=== PATIENT | female | born 1945 | race Caucasian/White ===

== ENCOUNTER 2018-12-26 08:50 | Inpatient (IN) ==
[2018-12-26] MEDS ORDERED: ADENOSINE IV SOLN 3 MG/ML 2 ML VIAL IV ONE (09:00)
[2018-12-26] MEDS ORDERED: SODIUM CHLORIDE 0.9% 1000ML 1,000 ML IV STA (09:08)
[2018-12-26] MEDS ORDERED: dilTIAZem HCl 125 MG in DEXTROSE 5% 100 ML IV STA (09:08)
[2018-12-26] MEDS ORDERED: dilTIAZem HCl 5 MG/ML 5 ML VIAL IV STA (09:08)
[2018-12-26 09:18] LABS: Basophils # (auto) 0.03 K/uL (0-0.2); Basophils % (auto) 0.3 %; Eosinophils # (auto) 0.16 K/uL (0-0.5); Eosinophils % (auto) 1.7 %; Hemoglobin 16.5 g/dL (12.0-16.0); Immature Granulocytes # (auto) 0.02 K/uL (0.00-0.02); Immature Granulocytes % (auto) 0.2 %; Lymphocytes # (auto) 3.36 K/uL (1.2-3.4); Lymphocytes % (auto) 34.8 %; Mean Corpuscular Hgb Conc 33.7 g/dL (32-36); Mean Corpuscular Volume 88.8 fL (80-100); Mean Platelet Volume 9.3 fL (7.4-10.4); Monocytes # (auto) 0.75 K/uL (0.11-0.59); Monocytes % (auto) 7.8 %; Neutrophils # (auto) 5.34 K/uL (1.4-6.5); Neutrophils % (auto) 55.2 %; Platelet Count 282 K/uL (130-400); RDW Coefficient of Variation 14.5 % (11.5-14.5); RDW Standard Deviation 47.3 fL (36.4-46.3); Red Blood Count 5.52 M/uL (4.2-5.4); White Blood Count 9.66 K/uL (4.8-10.8)
--- NOTE | 2018-12-26 09:27 | XRay Report ---
XR chest 1V portable CLINICAL HISTORY: SOB, tachycardia COMPARISON STUDY: No previous studies for comparison. FINDINGS: Lung volumes are mildly diminished. There is no pneumothorax or pleural effusion. There is no consolidation to suggest pneumonia. Mild cardiomegaly is noted. There is pulmonary vascular conges tion without overt pulmonary edema. IMPRESSION: Mild cardiomegaly with pulmonary vascular congestion. No overt pulmonary edema. Electronically signed by: Az Balletseros M.D. 12/26/2018 9:26 AM
[2018-12-26 09:38] LABS: Alanine Aminotransferase 27 U/L (12-78); Albumin Level 3.6 gm/dl (3.4-5.0); Aspartate Aminotransferase 20 U/L (15-37); BUN Creatinine Ratio 18.6 (10-20); Blood Urea Nitrogen 19 mg/dl (7-18); Calcium 8.7 mg/dl (8.5-10.1); Carbon Dioxide 27 mmol/L (21-32); Chloride 105 mmol/L (98-107); Creatinine Clr Calc Pharmacy 54.7 ml/min; Est GFR (African American) 63.6; Est GFR (Non-African American) 54.9; Glucose 143 mg/dl (70-99); Magnesium 2.4 mg/dl (1.8-2.4); Potassium 3.1 mmol/L (3.5-5.1); Sodium 143 mmol/L (136-145)
[2018-12-26 09:49] LABS: Albumin Globulin Ratio 0.9 (0.9-2); Alkaline Phosphatase 118 U/L (45-117); Bilirubin,Total 0.4 mg/dl (0.2-1); Total Protein 7.6 gm/dl (6.4-8.2); Troponin I < 0.015 ng/ml (0-0.045)
[2018-12-26] MEDS ORDERED: POTASSIUM CHLORIDE / WTR 10 MEQ/100 ML PLCT IV ONE (10:58)
[2018-12-26] MEDS ORDERED: POTASSIUM CHLORIDE 20 MEQ TABCR PO STA (10:58)
[2018-12-26] MEDS ORDERED: Heparin BOLUS **ED Use Only IV STA (11:23)
[2018-12-26 11:56] LABS: Partial Thromboplastin Ratio 0.9; Partial Thromboplastin Time 24.8 Seconds (21.0-31.0); Prothrombin Time 10.2 Seconds (9.0-12.0)
[2018-12-26] MEDS: HEPARIN SODIUM/DEXTROSE 25,000 UNITS/500 ML BAG IV SCH ×2 (12:03→14:53)
--- NOTE | 2018-12-26 12:11 | History & Physical Report ---
Date of Service December 26, 2018 Assessment & Plan (1) Atrial fibrillation with RVR: Patient with remote history of arrhythmia s/p ablation, uncertain if it was atrial fibrillation. Presently on Diltiazem 120mg po qHS. Presenting in AF with RVR, palpitations intermittently over the last few months. -Admit to PCU -Check 2D echocardiogram -Repeat troponin at 17:00 -Diltiazem gtt -Continue PO Diltiazem - increase to 240mg -Heparin gtt -Cardiology consultation to establish care -Patient may need a stress test in the future as she reports occasional exertional SOB and chest heaviness Present on Admission?: Yes (2) Hypokalemia: K=3.1 -Kdur 40meq PO -Repeat labs in AM Present on Admission?: Yes (3) Hypertension: Blood pressure well controlled at present -Diltiazem as above -HCTZ -Continue to monitor Present on Admission?: Yes (4) Hyperlipidemia: Diet controlled -Continue to monitor Present on Admission?: Yes (5) GERD (gastroesophageal reflux disease): Chronic. Well controlled -Continue Omeprazole F/E/N - Heplock. K repletion as above. Check Mg and PO4, Heart healthy diet as tolerated Ppx - Heparin gtt Code - Full Disposition - Admit to PCU Present on Admission?: Yes History of Present Illness Chief Complaint: AF with RVR Primary Care Provider: Chanel Bruce Nisa Perez is a 73yo C female with history of epidermolysis bullosa, HTN, HLP, Anxiety, GERD presenting with AF with RVR. Patient reports having an arrhythmia approximately 5 years ago. She is unsure if it was Atrial Fibrillation. She was started on a medication which made her ill then she had an ablation performed at [facility] in [place] ([facility] in [place], [place] Dr. Barton). She was started on Diltiazem and was briefly on a blood thinner. She moved to the area in March, reports having intermittent palpitations since then. Palpitations occur mostly at night. Relieved with deep breathing and bearing down. Palpitations have become more frequent and longer lasting over the last two weeks. Last night they were persistent. When she woke this AM at 08:00 her heart rate was 137 then 157 bpm. She then came to the ER. She denies chest pain but states that her chest feels sore. Denies SOB, dizziness, presyncope, numbness, weakness. She drinks 1-2 caffeinated beverages per day, minimal EtOH intake. She has a dull frontal headache now, otherwise no complaints. ER Course: Adenosine 18mg, Diltiazem 10mg bolus then gtt, Heparin gtt, KCL Allergies Allergy/AdvReac Type Severity Reaction Status Date / Time aspirin AdvReac Mild upset Verified 12/26/18 09:30 stomach Home Medications Home Medications Medication Instructions Recorded Confirmed Type Ansvcxhteco-Ikvdfq-O2 (C-leticia) 1 cap PO QAM 06/08/18 12/26/18 History Probiotic 1 cap PO QAM 06/08/18 12/26/18 History Triple Magnesium Complex 1 cap PO QAM 06/08/18 12/26/18 History ascorbic acid (vitamin C) [Vitamin 1 g PO QAM 06/08/18 12/26/18 History C] biotin 1 mg PO QAM 06/08/18 12/26/18 History cyanocobalamin (vitamin B-12) 5,000 mcg SUBLINGUAL QAM 06/08/18 12/26/18 History [Vitamin B-12] diltiazem HCl 120 mg PO HS 06/08/18 12/26/18 History hydrochlorothiazide 25 mg PO QAM 06/08/18 12/26/18 History omeprazole 40 mg PO QAM 06/08/18 12/26/18 History ibuprofen [Motrin IB] 200 mg PO Q6H PRN 12/26/18 12/26/18 History Past Med/Surg History Medical History Anxiety no meds Epidermolysis bullosa acquisita GERD (gastroesophageal reflux disease) Hyperlipidemia no meds, diet controlled Hypertension IBS (irritable bowel syndrome) Liver cyst just monitoring Osteoarthritis PVC's (premature ventricular contractions) hx of, reason for ablation Rheumatoid arthritis no meds Squamous cell carcinoma knee, chest, both arms--removed in office bilt hands--sx Thyroid nodule Surgical History History of biopsy of bladder benign History of bowel resection benign tumor, 3 ft removed History of cardiac radiofrequency ablation History of cataract surgery RIGHT CATARACT 06/22/18: 4mg of versed given History of colonoscopy History of dilatation and curettage History of esophagogastroduodenoscopy (EGD) History of gynecologic surgery vaginal cyst removal History of surgery skin cancer removed off both hands S/P thyroid biopsy nodules on thyroid, benign Status post medial meniscus repair left knee Family History Other No family history of adverse response to anesthesia Social History Preferred Language: Colombian Communication Ability: Effective Administrative Hearing Officer Required: No Beliefs That Will Affect Care: None Current Living Situation: Spouse Feels Safe at Home: Yes Smoking Status: Never smoker Second Hand Exposure: No ; Hx Alcohol Use: Yes Alcohol type: wine Hx Substance Use: No Review of Systems Review of Systems: All systems reviewed & are unremarkable except as noted in HPI & below Physical Exam Physical Exam: General: patient resting comfortably, NAD, non-toxic in appearance, AA&O x 4 Skin: warm, dry, intact, no rashes or lesions HEENT: NC/AT, PERRL, EOMI, anicteric sclera, conjunctiva without injection, external ear normal to inspection and nontender, nares patent, moist mucus membranes, dentition intact, no oropharyngeal lesions, neck supple, trachea midline, no LAD, no thyromegaly, no JVD Heart: +S1/S2, irregularly irregular, tachycardic, no m/r/g Lungs: equal air entry bilaterally, no rales/rhonchi/wheezes Abd: +BS, soft, NT/ND, no masses/organomegaly/ascites Ext: warm, 2+ pulses in UE/LE bilaterally, no clubbing/cyanosis or edema Neuro: nonfocal, patient AA&O x 4, speech intact, no facial droop, moving all extremities on command with equal strength 5/5 Results & Data Vital Signs (Past 12 Hours) Vital Signs Temp Pulse Pulse Resp BP BP Pulse Ox 12/26/18 10:12 80 16 119/71 99 12/26/18 09:30 121 H 14 134/79 99 12/26/18 09:29 137 H 20 140/91 97 12/26/18 09:05 98 12/26/18 09:01 137 H 16 137/96 99 12/26/18 08:53 36.5 C 165 H 18 151/91 H 98 Laboratory Results Lab Results 12/26/18 12/26/18 12/26/18 Range/Units 09:00 09:00 11:40 WBC 9.66 (4.8-10.8) K/uL RBC 5.52 H (4.2-5.4) M/uL Hgb 16.5 H (12.0-16.0) g/dL Hct 49.0 H (37-47) % MCV 88.8 (80-100) fL MCH 29.9 (25-34) pg MCHC 33.7 (32-36) g/dL RDW Std Deviation 47.3 H (36.4-46.3) fL RDW Coeff of Trent 14.5 (11.5-14.5) % Plt Count 282 (130-400) K/uL MPV 9.3 (7.4-10.4) fL Immature Gran % (Auto) 0.2 % Neut % (Auto) 55.2 % Lymph % (Auto) 34.8 % [place] % (Auto) 7.8 % Eos % (Auto) 1.7 % Baso % (Auto) 0.3 % Immature Gran # (Auto) 0.02 (0.00-0.02) K/uL Neut # (Auto) 5.34 (1.4-6.5) K/uL Lymph # (Auto) 3.36 (1.2-3.4) K/uL [place] # (Auto) 0.75 H (0.11-0.59) K/uL Eos # (Auto) 0.16 (0-0.5) K/uL Baso # (Auto) 0.03 (0-0.2) K/uL PT 10.2 (9.0-12.0) Seconds INR 1.0 (0.9-1.1) APTT 24.8 (21.0-31.0) Seconds PTT Ratio 0.9 Sodium 143 (136-145) mmol/L Potassium 3.1 L (3.5-5.1) mmol/L Chloride 105 (98-107) mmol/L Carbon Dioxide 27 (21-32) mmol/L Anion Gap 11.0 (3-11) BUN 19 H (7-18) mg/dl Creatinine 1.02 (0.6-1.2) mg/dl Est Cr Clr Drug Dosing 54.7 ml/min Est GFR ( Amer) 63.6 Est GFR (Non-Af Amer) 54.9 BUN/Creatinine Ratio 18.6 (10-20) Glucose 143 H (70-99) mg/dl Calcium 8.7 (8.5-10.1) mg/dl Magnesium 2.4 (1.8-2.4) mg/dl Total Bilirubin 0.4 (0.2-1) mg/dl AST 20 (15-37) U/L ALT 27 (12-78) U/L Alkaline Phosphatase 118 H (45-117) U/L Troponin I < 0.015 (0-0.045) ng/ml Total Protein 7.6 (6.4-8.2) gm/dl Albumin 3.6 (3.4-5.0) gm/dl Globulin 4.0 (2.5-4.0) gm/dl Albumin/Globulin Ratio 0.9 (0.9-2) TSH 1.240 (0.300-4.500) uIu/ml Diagnostic Findings XR chest 1V portable CLINICAL HISTORY: SOB, tachycardia COMPARISON STUDY: No previous studies for comparison. FINDINGS: Lung volumes are mildly diminished. There is no pneumothorax or pleural effusion. There is no consolidation to suggest pneumonia. Mild cardiomegaly is noted. There is pulmonary vascular congestion without overt pulmonary edema. IMPRESSION: Mild cardiomegaly with pulmonary vascular congestion. No overt pulmonary edema. Electronically signed by: Az Ballesteros M.D. 12/26/2018 9:26 AM Dictated: 12/26/18923 Transcribed: 12/26/18923 Code Status & VTE Plan Code Status full VTE Prophylaxis Plan VTE Prophylaxis will be ordered: Yes PG Care Time/CCT Total # of Minutes Spent Total Time Spent with Patient: Total time spent is greater than 50% in coordination of care (as documented) at patient's floor/unit and/or counseling patient: (1) Hyperlipidemia Hyperlipidemia type: unspecified Qualified Code(s): E78.5 - Hyperlipidemia, unspecified (2) GERD (gastroesophageal reflux disease) Esophagitis presence: esophagitis presence not specified Qualified Code(s): K21.9 - Gastro-esophageal reflux disease without esophagitis (3) Hypertension Hypertension type: essential hypertension Qualified Code(s): I10 - Essential (primary) hypertension
[2018-12-26] MEDS ORDERED: ACETAMINOPHEN 325 MG TAB PO PRN (14:31)
[2018-12-26] MEDS ORDERED: ONDANSETRON INJ 2 MG/ML 2 ML VIAL IV PRN (14:31)
[2018-12-26] MEDS ORDERED: POTASSIUM CHLORIDE 10 MEQ TABCR PO STA (14:31)
[2018-12-26] MEDS ORDERED: HEPARIN SODIUM/DEXTROSE 25,000 UNITS/500 ML BAG IV SCH (14:31)
[2018-12-26] MEDS ORDERED: Heparin IV Standard *NO* Bolus IV ONE (14:31)
[2018-12-26] MEDS ORDERED: DOCUSATE SODIUM 100 MG CAP PO PRN (14:31)
[2018-12-26] MEDS: dilTIAZem HCl 125 MG in DEXTROSE 5% 100 ML IV SCH (14:52)
--- NOTE | 2018-12-26 16:39 | Emergency Department Note ---
Entered by Aaron Pace acting as a scribe for Heath Lomeli MD ED Provider Note CHIEF COMPLAINT: Tachycardia HISTORY OF PRESENT ILLNESS: The patient is a 73 year old female who presents to the Emergency Room with complaints of episodic tachycardia that she first noticed last night around, 22:00, about 11 hours ago. The patient states that when she first noticed her heart racing she was short of breath, especially when lying down, but she did not have any chest pains. Just prior to the episode that patient started to develop a headache which she thought was just a sinus headache. The patient reports that she had a cardiac ablation done 5 years ago at [facility] due to a history of SVT and was seeing a community planner in [place] for some time. The patient notes that this is the second or third episode she has had since the ablation, however in the past her symptoms have resolved by themselves after a short time. The patient states that she no longer sees cardiology because since her ablation she has never had any serious complications. The patient denies any excessive alcohol use over the past couple of days. Pt denies LOC, fevers, chills, diaphoresis, visual changes, neck pain, chest pain, nausea, vomiting, abdominal pain, back pain, melena, hematochezia, urinary symptoms, numbness, weakness, lymphadenopathy, rash, or other complaints. REVIEW OF SYSTEMS: See HPI for pertinent positives and negatives. A total of ten systems were reviewed and were otherwise negative. PMHx/PSHx: PVCs, HTN, HLD, SCC, GERD, IBS, RA, Cardiac ablation, Bowel resection, EGD, Gynecologic surgery SOCIAL HISTORY: Patient lives at home. PHYSICAL EXAM: GENERAL: Awake, alert, uncomfortable-appearing, in no distress HENT: Normocephalic, atraumatic. Oropharynx unremarkable. EYES: Normal conjunctiva. Sclera non-icteric. NECK: Inspection normal. Non-tender. Supple. No nuchal rigidity. FROM. No masses. No bruits. RESPIRATORY: Clear to auscultation. No wheezes. No rales. Normal respiratory effort. CARDIAC: Tachycardic rate. Irregular rhythm. No murmurs. No rubs. Extremities warm and well perfused. Pulses equal. No JVD. GI: Soft, non-distended. No tenderness to palpation. No rebound or guarding. No masses. RECTAL: Deferred. MUSCULOSKELETAL: Atraumatic. Chest examination reveals no tenderness. The back is symmetrical on inspection without obvious abnormality. There is no CVA tenderness to palpation. No joint edema. LOWER EXTREMITIES: Calves are equal size bilaterally and non-tender. No edema. No discoloration. NEURO: Normal sensorium. No sensory or motor deficits noted. SKIN: No rash or jaundice noted. EMERGENCY DEPARTMENT COURSE: 0900: Past medical records reviewed. The patient was evaluated in room A11B, and a complete history and physical examination were performed. 1059: I reevaluated the patient and she is feeling better. Her heart rate is now controlled. 1105: I spoke to Dr. Becerril - [facility] Hospitalist about the patient's case. She is going to accept the patient for further evaluation. MEDICAL DECISION MAKING: Triage Nursing notes reviewed and agree them. Additional history obtained from the family. The patient's history was concerning for palpitations. Differential diagnosis: Etiologies such as electrolyte abnormality, cardiac dysrhythmia, thyroid dysfunction, pulmonary embolism, infection, gastrointestinal, as well as others were entertained. Physical examination: Tachycardia noted. It was irregular. ER treatment provided: IV diltiazem bolus and drip On reassessment the patient felt better. IV heparin Diagnostic interpretation by me: The electrocardiogram was negative for ischemic change. A. fib with RVR noted. The labs revealed an unremarkable CBC and chemistry panel except for hypokalemia. Imaging studies: Chest x-ray as above. Consultation: A consultation was placed with the hospitalist. The case was discussed and diagnostics were reviewed. The patient was evaluated in the ER for further treatment. CONTINUOUS CARDIAC MONITORING: Indication: New onset atrial fibrillation Rhythm: Atrial fibrillation with borderline rapid ventricular response after treatment Rate: 98 Other: No ectopy noted CRITICAL CARE: I have personally spent greater than 35 minutes of critical care time in the direct management of this patient. This includes bedside care, interpretation of diagnostic studies, and testing, discussion with consultants, patient, and family members, and other required patient management activities. This 35 minutes is in excess of all separately billable procedures. IMPRESSION: Afib with RVR Hypokalemia PLAN: Being evaluated by hospitalist The scribe's documentation has been prepared under my direction and personally reviewed by me in its entirety. I confirm that the note above accurately reflects all work, treatment, procedures, and medical decision making performed by me. Impression & Plan Atrial fibrillation with RVR, Hypokalemia Past Med/Surg History Medical History Anxiety no meds Epidermolysis bullosa acquisita GERD (gastroesophageal reflux disease) Hyperlipidemia no meds, diet controlled Hypertension IBS (irritable bowel syndrome) Liver cyst just monitoring Osteoarthritis PVC's (premature ventricular contractions) hx of, reason for ablation Rheumatoid arthritis no meds Squamous cell carcinoma knee, chest, both arms--removed in office bilt hands--sx Thyroid nodule Surgical History History of biopsy of bladder benign History of bowel resection benign tumor, 3 ft removed History of cardiac radiofrequency ablation History of cataract surgery RIGHT CATARACT 06/22/18: 4mg of versed given History of colonoscopy History of dilatation and curettage History of esophagogastroduodenoscopy (EGD) History of gynecologic surgery vaginal cyst removal History of surgery skin cancer removed off both hands S/P thyroid biopsy nodules on thyroid, benign Status post medial meniscus repair left knee Family History Other No family history of adverse response to anesthesia Social History Preferred Language: Greek Communication Ability: Effective Gold Miner Required: No Beliefs That Will Affect Care: None Current Living Situation: Spouse Feels Safe at Home: Yes Smoking Status: Never smoker Second Hand Exposure: No ; Hx Alcohol Use: Yes Alcohol type: wine Hx Substance Use: No Results & Data Vital Signs Vital Signs - 24 hr 12/26/18 08:53 12/26/18 09:01 12/26/18 09:05 Temperature 36.5 C Temperature Source Oral Sepsis Recent Fever Within 48 Hours No Sepsis New/Unexplained Change in Mental Status No Sepsis Action Taken by Nursing No Action Required Pulse Rate 165 H 137 H Pulse Rate [Left Finger] Pulse Rate from SpO2 Sensor 149 H Respiratory Rate 18 16 Respiratory Effort / Characteristics Non-Labored Respiratory Depth Normal Blood Pressure 151/91 H 137/96 Blood Pressure [Left Arm] Blood Pressure Mean 111 109 Blood Pressure Mean [Left Arm] Pulse Oximetry 98 99 98 Oxygen Delivery Method Room Air Nasal Cannula Oxygen Flow Rate 2 12/26/18 09:29 12/26/18 09:30 12/26/18 10:12 Temperature Temperature Source Sepsis Recent Fever Within 48 Hours Sepsis New/Unexplained Change in Mental Status Sepsis Action Taken by Nursing Pulse Rate 137 H 121 H Pulse Rate [Left Finger] 80 Pulse Rate from SpO2 Sensor 127 H 103 H Respiratory Rate 20 14 16 Respiratory Effort / Characteristics Respiratory Depth Blood Pressure 140/91 134/79 Blood Pressure [Left Arm] 119/71 Blood Pressure Mean 107 97 Blood Pressure Mean [Left Arm] 87 Pulse Oximetry 97 99 99 Oxygen Delivery Method Room Air Oxygen Flow Rate Home Medications Current Medication List: was personally reviewed by me Laboratory Data Attestation: I reviewed the patient's lab results. Result diagrams: 12/26/18 09:00 12/26/18 09:00 Lab Results 12/26/18 12/26/18 Range/Units 09:00 09:00 WBC 9.66 (4.8-10.8) K/uL RBC 5.52 H (4.2-5.4) M/uL Hgb 16.5 H (12.0-16.0) g/dL Hct 49.0 H (37-47) % MCV 88.8 (80-100) fL MCH 29.9 (25-34) pg MCHC 33.7 (32-36) g/dL RDW Std Deviation 47.3 H (36.4-46.3) fL RDW Coeff of Trent 14.5 (11.5-14.5) % Plt Count 282 (130-400) K/uL MPV 9.3 (7.4-10.4) fL Immature Gran % (Auto) 0.2 % Neut % (Auto) 55.2 % Lymph % (Auto) 34.8 % [place] % (Auto) 7.8 % Eos % (Auto) 1.7 % Baso % (Auto) 0.3 % Immature Gran # (Auto) 0.02 (0.00-0.02) K/uL Neut # (Auto) 5.34 (1.4-6.5) K/uL Lymph # (Auto) 3.36 (1.2-3.4) K/uL [place] # (Auto) 0.75 H (0.11-0.59) K/uL Eos # (Auto) 0.16 (0-0.5) K/uL Baso # (Auto) 0.03 (0-0.2) K/uL Sodium 143 (136-145) mmol/L Potassium 3.1 L (3.5-5.1) mmol/L Chloride 105 (98-107) mmol/L Carbon Dioxide 27 (21-32) mmol/L Anion Gap 11.0 (3-11) BUN 19 H (7-18) mg/dl Creatinine 1.02 (0.6-1.2) mg/dl Est Cr Clr Drug Dosing 54.7 ml/min Est GFR ( Amer) 63.6 Est GFR (Non-Af Amer) 54.9 BUN/Creatinine Ratio 18.6 (10-20) Glucose 143 H (70-99) mg/dl Calcium 8.7 (8.5-10.1) mg/dl Magnesium 2.4 (1.8-2.4) mg/dl Total Bilirubin 0.4 (0.2-1) mg/dl AST 20 (15-37) U/L ALT 27 (12-78) U/L Alkaline Phosphatase 118 H (45-117) U/L Troponin I < 0.015 (0-0.045) ng/ml Total Protein 7.6 (6.4-8.2) gm/dl Albumin 3.6 (3.4-5.0) gm/dl Globulin 4.0 (2.5-4.0) gm/dl Albumin/Globulin Ratio 0.9 (0.9-2) TSH 1.240 (0.300-4.500) uIu/ml Administered Medications Sodium Chloride (Nss 1000ml) 1,000 mls @ 125 mls/hr IV .Q8H STA Stop: 12/26/18 17:07 Last Admin: 12/26/18 09:23 Dose: 125 mls/hr Documented by: [id number] Heparin Sodium/Dextrose (Heparin Sodium/Dextrose) 25,000 units in 500 mls @ 25 mls/hr IV .Q20H [facility]; Protocol Stop: 01/25/19 11:14 Last Admin: 12/26/18 14:53 Dose: 1,250 units/hr, 25 mls/hr Documented by: [id number] Cosigned by: [id number] Titration: 12/26/18 14:53 Dose: 1,250 units/hr, 25 mls/hr Documented by: [id number] Cosigned by: [id number] Admin: 12/26/18 12:03 Dose: 1,250 units/hr, 25 mls/hr Documented by: [id number] Cosigned by: [id number] Diltiazem HCl 125 mg/ Dextrose 125 mls @ 5 mls/hr IV .Q24H [facility]; Protocol Stop: 01/25/19 14:30 Last Admin: 12/26/18 14:52 Dose: 5 mg/hr, 5 mls/hr Documented by: [id number] Cosigned by: [id number] Discontinued Medications Adenosine (Adenosine) Confirm Administered Dose 18 mg IV .STK-MED ONE Stop: 12/26/18 09:01 Last Admin: 12/26/18 09:22 Dose: Not Given Documented by: [id number] Diltiazem HCl (Cardizem) 10 mg IV NOW STA Stop: 12/26/18 09:09 Last Admin: 12/26/18 09:28 Dose: 10 mg Documented by: [id number] Cosigned by: [id number] Heparin Sodium (Porcine) (Heparin Iv Bolus) 6,000 units IV NOW STA Stop: 12/26/18 11:24 Last Admin: 12/26/18 12:04 Dose: 6,000 units Documented by: [id number] Cosigned by: [id number] Heparin Sodium/Dextrose () 1 ea IV NOW STA; Protocol Stop: 12/26/18 11:12 Last Admin: 12/26/18 12:08 Dose: Not Given Documented by: [id number] Heparin Sodium/Dextrose () 1 ea IV ONE ONE; Protocol Stop: 12/26/18 14:32 Last Admin: 12/26/18 14:53 Dose: 1 ea Documented by: [id number] Diltiazem HCl 125 mg/ Dextrose 125 mls @ 5 mls/hr IV .Q24H ST[facility]; Protocol Stop: 12/27/18 09:07 Last Titration: 12/26/18 14:31 Dose: 0 mg/hr, 0 mls/hr Documented by: [id number] Titration: 12/26/18 09:42 Dose: 2.5 mg/hr, 2.5 mls/hr Documented by: [id number] Admin: 12/26/18 09:28 Dose: 5 mg/hr, 5 mls/hr Documented by: [id number] Cosigned by: [id number] Potassium Chloride (K Alex / Wtr) 10 meq in 100 mls @ 100 mls/hr IV ONE ONE Stop: 12/26/18 11:57 Last Infusion: 12/26/18 12:07 Dose: 0 mls/hr Documented by: [id number] Admin: 12/26/18 11:07 Dose: 100 mls/hr Documented by: [id number] Potassium Chloride (Klor-Con M20) 20 meq PO NOW STA Stop: 12/26/18 10:59 Last Admin: 12/26/18 11:07 Dose: 20 meq Documented by: [id number] Potassium Chloride (Klor-Con M10) 40 meq PO NOW STA Stop: 12/26/18 14:32 Last Admin: 12/26/18 16:19 Dose: 40 meq Documented by: [id number] Imaging Data Radiologist's Impression: Radiology results as stated below per my review and the radiologist's interpretation: XR chest 1V portable CLINICAL HISTORY: SOB, tachycardia COMPARISON STUDY: No previous studies for comparison. FINDINGS: Lung volumes are mildly diminished. There is no pneumothorax or pleural effusion. There is no consolidation to suggest pneumonia. Mild card iomegaly is noted. There is pulmonary vascular congestion without overt pulmonary edema. IMPRESSION: Mild cardiomegaly with pulmonary vascular congestion. No overt pulmonary edema. Electronically signed by: Az Ballesteros M.D. 12/26/2018 9:26 AM ECG Data Attestation: I personally reviewed and interpreted this ECG as follows: Indication: tachycardia Rate (beats per minute): 164 Rhythm: SVT Findings: + nonspecific-ST abn; no PVC and no ST elevation Additional Comments: REPEAT EKG: Afib with RVR 151, non-specific ST abnormalities, no ST elevation, no PVC Blood Pressure Blood Pressure Findings: Elevated blood pressure Blood Pressure Disposition: Referred to patients primary care provider Discharge Plan Visit Data *Final* Discharge Date/Time: 12/26/18 13:45 Chief Complaint: Tachycardia Stated Complaint: RAPID HEART RATE ED Provider: Heath Lomeli Discharge Problem: Atrial fibrillation with RVR, Hypokalemia Patient Disposition: Admitted As Inpatient Discharge Instructions Interventions: ED Discharge Assessment Last Done: 12/26/18 13:45 The scribe's documentation has been prepared under my direction and personally reviewed by me in its entirety. I confirm that the note above accurately reflects all work, treatment, procedures, and medical decision making performed by me.
--- NOTE | 2018-12-26 16:41 | Ultrasound Report ---
US gallbladder CLINICAL HISTORY: 73 years-old Female presenting with abnormal LFTs, Lipase. TECHNIQUE: Real-time grayscale and limited color Doppler ultrasound imaging of the abdomen limited to the right upper quadrant was performed. COMPARISON: 04/26/2018. FINDINGS: Pancreas: Visualized portions of the pancreatic head and body normal. Liver: Markedly hyperechogenic parenchyma with obscuration of the right hemidiaphragm, likely indicat ing marked hepatic steatosis. The liver measures 18.1 cm in maximal sagittal dimension. Multilobular anechoic lesion measuring 3.4 x 2.5 x 3.8 cm consistent with hepatic cysts likely within the left lob e. A similar appearing slightly smaller lesion is located within the right lobe. Main portal vein pat ent with normal directional flow. Biliary: No intrahepatic biliary ductal dilatation. Common bile duct measures up to 4 mm in diameter. Gallbladder: Top normal thickness of the gallbladder wall. The gallbladder is physiologically distend ed. No gallstones or gallbladder sludge is apparent. No pericholecystic fluid. Sonographic Thomas's s ign negative. Right kidney: Normal in appearance without evidence of hydronephrosis. Ascites: None. Other: None. IMPRESSION: 1. Lack of sonographic evidence of pancreatitis does not exclude the diagnosis. 2. Physiologically distended gallbladder without cholelithiasis or biliary ductal dilatation. Top no rmal gallbladder wall thickness is nonspecific and possibly secondary. No convincing evidence of chol ecystitis. 3. Hepatic steatosis. Correlate with liver function tests to exclude steatohepatitis as a cause for abdominal pain. Electronically signed by: Larry Rubi M.D. 12/26/2018 4:40 PM
[2018-12-26 17:51] LABS: Partial Thromboplastin Ratio 2.3
[2018-12-26 19:26] LABS: Partial Thromboplastin Time 62.8 Seconds (21.0-31.0)
[2018-12-26] MEDS ORDERED: dilTIAZem HCL 120 MG CAPCR PO SCH (21:00)
[2018-12-27] MEDS: dilTIAZem HCl 125 MG in DEXTROSE 5% 100 ML IV SCH (04:52)
[2018-12-27 07:37] LABS: Basophils # (auto) 0.04 K/uL (0-0.2); Basophils % (auto) 0.6 %; Eosinophils # (auto) 0.18 K/uL (0-0.5); Eosinophils % (auto) 2.7 %; Hematocrit (blood only) 41.5 % (37-47); Hemoglobin 13.7 g/dL (12.0-16.0); Immature Granulocytes # (auto) 0.01 K/uL (0.00-0.02); Immature Granulocytes % (auto) 0.1 %; Lymphocytes # (auto) 2.36 K/uL (1.2-3.4); Lymphocytes % (auto) 35.3 %; Mean Corpuscular Volume 89.4 fL (80-100); Mean Platelet Volume 9.4 fL (7.4-10.4); Monocytes # (auto) 0.41 K/uL (0.11-0.59); Monocytes % (auto) 6.1 %; Neutrophils # (auto) 3.68 K/uL (1.4-6.5); Neutrophils % (auto) 55.2 %; Platelet Count 239 K/uL (130-400); RDW Coefficient of Variation 14.9 % (11.5-14.5); RDW Standard Deviation 48.6 fL (36.4-46.3); Red Blood Count 4.64 M/uL (4.2-5.4); White Blood Count 6.68 K/uL (4.8-10.8)
[2018-12-27 07:56] LABS: Partial Thromboplastin Ratio 2.2
[2018-12-27 07:57] LABS: Partial Thromboplastin Time 59.4 Seconds (21.0-31.0)
[2018-12-27 08:14] LABS: BUN Creatinine Ratio 17.4 (10-20); Calcium 8.7 mg/dl (8.5-10.1); Creatinine Clr Calc Pharmacy 70.1 ml/min; Est GFR (African American) 85.4; Est GFR (Non-African American) 73.7; Potassium 3.6 mmol/L (3.5-5.1)
[2018-12-27] MEDS ORDERED: PANTOprazole 40 MG TAB PO SCH (09:00)
[2018-12-27] MEDS ORDERED: hydroCHLOROthiazide 25 MG TAB PO SCH (09:00)
[2018-12-27] MEDS ORDERED: DICLOFENAC SOD 1% GEL 100 GM TUBE EXT SCH (09:45)
[2018-12-27] MEDS: HEPARIN SODIUM/DEXTROSE 25,000 UNITS/500 ML BAG IV SCH (10:42)
--- NOTE | 2018-12-27 11:49 | Cardiology Consultation ---
Date of Consultation December 27, 2018 Assessment & Plan (1) Atrial fibrillation with RVR: Patient's presenting rhythm was curious and did not appear to be atrial fibrillation. However, rhythm did degenerate into atrial fibrillation and later return to a more regular tachycardia. It is possible that she had an atypical atrial flutter. Less likely would be a simple reentrant SVT such as AVNRT. The fact that she underwent a prior catheter based procedure without recurrence of her symptoms in over 4 years suggests that that treatment was successful. It is possible that an SVT precipitated atrial fibrillation, but I think more likely she simply has paroxysmal atrial fibrillation related to age and hypertension. She spontaneously converted to sinus rhythm. I think initial therapy could include an increase in her diltiazem dose to 240 milligrams daily. Her chads Vasc score is 3 and she warrant systemic anticoagulation. Given her normal renal function she appears to be a good candidate for any of the novel agents including Eliquis 5 milligrams twice daily or Xarelto 20 milligrams daily. Do not have a good sense for her pattern of atrial fibrillation yet. Depending on her symptoms and recurrent arrhythmia going forward we could consider an EP study in order to identify a precipitating mechanism such as an atypical flutter or SVT, but she may simply require standard treatment for atrial fibrillation in any regard and I think adopting a rate control strategy and starting anticoagulation is a good place to start. Could consider rhythm control if she has more frequent symptomatic episodes. Her potassium was low at the time of admission. She is on a diuretic. She may benefit from potassium supplementation on a daily basis. I think she could be safely discharged today. I think her heparin and diltiazem should be stopped. She should follow up in our clinic for continued discussion and management of paroxysmal atrial fibrillation. History of Present Illness Reason for Consultation: Atrial fibrillation Requesting Physician: Winnie Attending Physician: Jez Zhou History of Present Illness The patient is a 73-year-old woman with a history of supraventricular tachycardia who experienced the onset of palpitations approximately 36 hours ago. The patient was lying down the bed which she noticed palpitations as well as an elevated heart rate. She did check her heart rate with a blood pressure meter and noticed it was approximately 130 beats per minute. She is not appear to have associated breathing difficulty or chest discomfort. She has not report dizziness or lightheadedness. He has been mostly the evening wearing about the palpitations and did not sleep well, but we did to see if the symptoms would resolve. She attempted to use some maneuvers that she had tried in the past for her SVT such as deep breathing and bearing down, but this did not terminate the arrhythmia. The following morning she contacted her primary care provider and was advised to go to the emergency room. Upon arrival she was noted to be in atrial fibrillation with rapid ventricular rate. She was administered diltiazem and heparin and eventually converted back to sinus rhythm after admission. Her symptoms appear to have resolved at this time. Before her prior ablation the patient did experience episodes of palpitations that generally were terminated with vagal maneuvers or short limited in duration. After a catheter based procedure she did not have any symptoms of this nature for approximately 4 years. Earlier this year she did have some brief episodes which appear to be similar to her old SVT. The episode which prompted her admission appear to be different. She has otherwise been feeling well. She is limited with respect to activity due to some left knee discomfort. She does not perform regular exercise but is able to perform mild to moderate activity without significant dyspnea or chest discomfort. Allergies Allergy/AdvReac Type Severity Reaction Status Date / Time aspirin AdvReac Mild upset Verified 12/26/18 09:30 stomach Home Medications Home Medications Medication Instructions Recorded Confirmed Type Perwlonvuub-Rnigyr-C1 (C-leticia) 1 cap PO QAM 06/08/18 12/26/18 History Probiotic 1 cap PO QAM 06/08/18 12/26/18 History Triple Magnesium Complex 1 cap PO QAM 06/08/18 12/26/18 History ascorbic acid (vitamin C) [Vitamin 1 g PO QAM 06/08/18 12/26/18 History C] biotin 1 mg PO QAM 06/08/18 12/26/18 History cyanocobalamin (vitamin B-12) 5,000 mcg SUBLINGUAL QAM 06/08/18 12/26/18 History [Vitamin B-12] diltiazem HCl 120 mg PO HS 06/08/18 12/26/18 History hydrochlorothiazide 25 mg PO QAM 06/08/18 12/26/18 History omeprazole 40 mg PO QAM 06/08/18 12/26/18 History ibuprofen [Motrin IB] 200 mg PO Q6H PRN 12/26/18 12/26/18 History Patient History Medical History Anxiety no meds Epidermolysis bullosa acquisita GERD (gastroesophageal reflux disease) Hyperlipidemia no meds, diet controlled Hypertension IBS (irritable bowel syndrome) Liver cyst just monitoring Osteoarthritis PVC's (premature ventricular contractions) hx of, reason for ablation Rheumatoid arthritis no meds Squamous cell carcinoma knee, chest, both arms--removed in office bilt hands--sx Thyroid nodule Surgical History History of biopsy of bladder benign History of bowel resection benign tumor, 3 ft removed History of cardiac radiofrequency ablation History of cataract surgery RIGHT CATARACT 06/22/18: 4mg of versed given History of colonoscopy History of dilatation and curettage History of esophagogastroduodenoscopy (EGD) History of gynecologic surgery vaginal cyst removal History of surgery skin cancer removed off both hands S/P thyroid biopsy nodules on thyroid, benign Status post medial meniscus repair left knee Family History Other No family history of adverse response to anesthesia Social History Preferred Language: Senegalese Communication Ability: Effective Practice Professional Required: No Beliefs That Will Affect Care: None Current Living Situation: Spouse Feels Safe at Home: Yes Smoking Status: Never smoker Second Hand Exposure: No ; Hx Alcohol Use: Yes Alcohol type: wine Hx Substance Use: No Review of Systems Review of Systems: All systems reviewed & are unremarkable except as noted in HPI & below Physical Exam Physical Exam: She is alert and oriented x3. Mood affect appear normal. She answered all questions appropriately. HEENT: Sclerae are anicteric. Pupils are equal and reactive to light and accommodation. Extraocular movements were intact. Neuro: Cranial nerves intact Neck: Examination of the submandibular region did not reveal any significant lymphadenopathy. Carotids are palpable bilaterally and free of bruits on auscultation. There was no evidence of jugular venous distention. The thyroid was not enlarged. Lungs: Lungs are clear to auscultation bilaterally. There are no rales wheezes or rhonchi. She has normal respiratory effort without use of accessory muscles. There is normal pulmonary excursion. Cardiac: The rhythm was regular. S1 and S2 were normal. There are no murmurs on examination. The PMI was not markedly displaced on palpation. Abdomen: The abdomen was soft and nontender. Extremities: Patient has bilateral radial pulses that are equal in intensity. There is no evidence cyanosis or clubbing. There was no evidence of significant peripheral edema bilaterally. Skin: There are no rashes noted on examination today. Results & Data Vital Signs (Past 12 Hours) Vital Signs Temp Pulse Pulse Resp BP BP Pulse Ox 12/27/18 11:08 36.6 C 88 19 100/69 92 12/27/18 08:00 69 12/27/18 07:45 36.6 C 72 18 113/73 98 12/27/18 04:15 75 16 130/72 96 12/27/18 00:00 36.7 C 77 79 16 113/70 96 Laboratory Results Abnormal Lab Results 12/26/18 12/26/18 12/26/18 11:40 17:20 17:20 WBC RBC Hgb Hct MCV MCH MCHC RDW Std Deviation RDW Coeff of Trent Plt Count MPV Immature Gran % (Auto) Neut % (Auto) Lymph % (Auto) [place] % (Auto) Eos % (Auto) Baso % (Auto) Immature Gran # (Auto) Neut # (Auto) Lymph # (Auto) [place] # (Auto) Eos # (Auto) Baso # (Auto) PT 10.2 INR 1.0 APTT 24.8 62.8 H* PTT Ratio 0.9 2.3 Sodium Potassium Chloride Carbon Dioxide Anion Gap BUN Creatinine Est Cr Clr Drug Dosing Est GFR ( Amer) Est GFR (Non-Af Amer) BUN/Creatinine Ratio Glucose Calcium Troponin I < 0.015 12/27/18 12/27/18 12/27/18 06:40 06:40 06:40 WBC 6.68 RBC 4.64 Hgb 13.7 Hct 41.5 MCV 89.4 MCH 29.5 MCHC 33.0 RDW Std Deviation 48.6 H RDW Coeff of Trent 14.9 H Plt Count 239 MPV 9.4 Immature Gran % (Auto) 0.1 Neut % (Auto) 55.2 Lymph % (Auto) 35.3 [place] % (Auto) 6.1 Eos % (Auto) 2.7 Baso % (Auto) 0.6 Immature Gran # (Auto) 0.01 Neut # (Auto) 3.68 Lymph # (Auto) 2.36 [place] # (Auto) 0.41 Eos # (Auto) 0.18 Baso # (Auto) 0.04 PT INR APTT 59.4 H* PTT Ratio 2.2 Sodium 144 Potassium 3.6 D Chloride 108 H Carbon Dioxide 28 Anion Gap 8.0 BUN 14 Creatinine 0.80 Est Cr Clr Drug Dosing 70.1 Est GFR ( Amer) 85.4 Est GFR (Non-Af Amer) 73.7 BUN/Creatinine Ratio 17.4 Glucose 103 H Calcium 8.7 Troponin I Diagnostic Findings Chest x-ray obtained at the time admission not reveal any acute cardiopulmonary findings Echocardiogram performed yesterday was essentially normal with stage I diastolic dysfunction. No significant valvular heart disease ECG Additional Comments: Initial EKG appeared to be a reentrant rhythm, possibly atrial flutter. Repeat EKG demonstrated atrial fibrillation PG Care Time/CCT Total # of Minutes Spent Total Time Spent with Patient: Total time spent is greater than 50% in coordination of care (as documented) at patient's floor/unit and/or counseling patient:
== END 2018-12-27 14:05 | disposition home or self-care (01) | DRG 309 ==
LOC: ED 08:50 → 2S 11:19 → SUATTDRO 11:19 → 2S 13:45
DX: I48.91 Unspecified atrial fibrillation; E87.6 Hypokalemia; I10 Essential (primary) hypertension; E78.5 Hyperlipidemia, unspecified; L12.30 Acquired epidermolysis bullosa, unspecified; K21.9 Gastro-esophageal reflux disease without esophagitis

== ENCOUNTER 2019-12-14 06:24 | Observation (INO) ==
--- NOTE | 2019-11-10 13:06 | PAT Medication Instructions ---
Medication Instructions Date of Service November 10, 2019 Home Medications Medication Instructions Recorded apixaban 5 mg tablet 5 mg PO BID #180 tab 05/02/19 Wheeled Walker #1 ea 10/11/19 Jbhguyuyrip-Nxygom-[id number] (C-leticia) 1 cap PO QAM Probiotic 1 cap PO QAM Triple Magnesium Complex 1 cap PO QAM ascorbic acid (vitamin C) [Vitamin C] 1 g PO QAM biotin 1 mg PO QAM apixaban 5 mg tablet 5 mg PO BID hydrochlorothiazide 25 mg tablet 25 mg PO QAM omeprazole 40 mg capsule,delayed release 40 mg PO QAM calcium carbonate [Calcium 500] 500 mg PO QAM metoprolol succinate 25 mg PO QPM pravastatin 40 mg PO HS ASK your prescriber and surgeon apixaban 5 mg tablet 5 mg PO BID (in order for spinal anesthesia, Apixaban/Eliquis needs to be stopped 72 hours/3 days before surgery. Please check if okay with doctor that prescribes this to you) STOP taking 2 weeks before surgery (or as soon as possible if surgery is within 2 weeks) Uuckeydoaem-Yyrocl-O6 (C-leticia) 1 cap PO QAM DO NOT take the morning of surgery Probiotic 1 cap PO QAM Triple Magnesium Complex 1 cap PO QAM ascorbic acid (vitamin C) [Vitamin C] 1 g PO QAM biotin 1 mg PO QAM hydrochlorothiazide 25 mg tablet 25 mg PO QAM calcium carbonate [Calcium 500] 500 mg PO QAM Take morning of surgery With a small sip of water, OTHERWISE NOTHING TO EAT OR DRINK AFTER MIDNIGHT: omeprazole 40 mg capsule,delayed release 40 mg PO QAM Take evening before surgery metoprolol succinate 25 mg PO QPM pravastatin 40 mg PO HS Other Notes If you have any questions please call us at [phone] or [phone] or [phone] or [phone]
--- NOTE | 2019-11-13 11:12 | Anesthesiology Consultation ---
Date of Service November 13, 2019 Assessment & Plan (1) Encounter for pre-operative examination: Per PAT assessment on 11/12: Travel screen negative. No known COVID-19 positive contacts. No current COVID-19 related symptoms. Patient scheduled for preop protocol COVID-19 testing 12/07 ([place]). Awaiting results. - Cardiology office visit: 10/10/19: "She appears to be doing quite well. It is unclear how often she has atrial fibrillation. Her heart rate and rhythm were normal today. We did switch her to metoprolol and it is unclear whether she will have adequate rate control on this dose of medication. However, she has more frequent episodes of rapid heartbeats we can simply double her dose of metoprolol succinate. She will continue on anticoagulation indefinitely. Her anticoagulation could certainly be interrupted temporarily to facilitate any surgery if she appears to be a good candidate for right knee replacement." - Eliquis instructions: patient made aware that in order for spinal anesthesia, Eliquis needs to be held 72 hours/3 days prior to surgery. Patient voiced understanding/will check if okay with prescriber. - Hx Epidermolysis bullosa acquisita: follows closely with dermatology. Recent flare involving upper extremity/mouth blistering significantly improved on prednisone. Tapering off prednisone (to be completed week of 11/13/19). Patient states she will contact surgeon/dermatology if worsening of symptoms after prednisone completion for further preop recommendations if needed. Case reviewed with Dr. Weaver. He feels that nothing further needed prior to surgery from anesthesia perspective. Chart Review Chart Review: Acceptable Risk for Surgery and Patient seen in Pre Admission Testing Teaching & Discussion Pre-Anesthesia Teaching/Discussion Notes: Instructed NPO after midnight before surgery,except medications with 15 cc of water. Medication instructions provided according to the PAT guidelines. History Surgery Operation Date: 12/14/19 07:30 Proposed Procedures p Right Total Knee Arthroplasty - Handy Becerril MD Height/Weight Height: 5 ft 6.5 in Weight: 84 kg Allergies Allergy/AdvReac Type Severity Reaction Status Date / Time IgA less than or equal to 50 Allergy Rash, Verified 11/07/19 11:54 mcg/mL headache, [From Privigen] itching immune globulin,gamma (IgG) Allergy Rash, Verified 11/07/19 11:54 human headache, [From Privigen] itching proline [From Privigen] Allergy Rash, Verified 11/07/19 11:54 headache, itching aspirin AdvReac Mild upset Verified 11/07/19 11:51 stomach Medications Home Medications Medication Instructions Recorded Confirmed Last Taken Wowosdbnlfp-Kaxxbz-D7 (C-leticia) 1 cap PO QAM 06/08/18 11/07/19 12/25/18 Probiotic 1 cap PO QAM 06/08/18 11/07/19 12/25/18 Triple Magnesium Complex 1 cap PO QAM 06/08/18 11/07/19 12/25/18 ascorbic acid (vitamin C) [Vitamin 1 g PO QAM 06/08/18 11/07/19 12/25/18 C] biotin 1 mg PO QAM 06/08/18 11/07/19 12/25/18 apixaban 5 mg tablet 5 mg PO BID #180 tab 05/02/19 11/07/19 Unknown hydrochlorothiazide 25 mg tablet 25 mg PO QAM tab 10/10/19 11/07/19 Unknown omeprazole 40 mg capsule,delayed 40 mg PO QAM cap 10/10/19 11/07/19 Unknown release Wheeled Walker #1 ea 10/11/19 11/07/19 Unknown calcium carbonate [Calcium 500] 500 mg PO QAM 11/07/19 11/07/19 Unknown metoprolol succinate 25 mg PO QPM 11/07/19 11/07/19 Unknown pravastatin 40 mg PO HS 11/07/19 11/07/19 Unknown Past Medical History Medical History (Updated 11/13/19 @ 15:28 by Mendy Chan) Anxiety no meds Atrial fibrillation [place] [facility] [place] Epidermolysis bullosa acquisita diagnosed 2013, has had multiple therapies in the past, recent flare (upper extremity/mouth blistering), recent predisone (to be completed week of 11/12), [place]. Rubalcava[place]urtado[place] [facility] [place] all blistering improving as of 11/12 PAT visit GERD (gastroesophageal reflux disease) Hyperlipidemia Hypertension IBS (irritable bowel syndrome) Liver cyst monitoring Neuropathy Osteoarthritis PVC's (premature ventricular contractions) hx Rheumatoid arthritis no meds Squamous cell carcinoma s/p excision (knee, chest, r/l arms) Thyroid nodule Exercise / Class Metabolic Activity II 4-5 Yardwork/Stairs/Walk up hill Past Family History Family History Other No family history of adverse response to anesthesia Past Surgical History Surgical History History of biopsy of bladder benign History of bowel resection benign tumor, 3 ft removed History of cardiac radiofrequency ablation History of cataract surgery History of colonoscopy History of dilatation and curettage History of esophagogastroduodenoscopy (EGD) History of gynecologic surgery vaginal cyst removal History of surgery skin cancer removed off both hands S/P thyroid biopsy nodules on thyroid, benign Status post medial meniscus repair left knee Past Anesthesia History No Hx of Anesthesia Complications and No Family Hx of Anesthesia Complications History of PONV No Hx of PONV and No Hx of Motion Sickness Social History Smoking Status: Never smoker Do You Dip or Chew Tobacco: No Hx Alcohol Use: Yes Alcohol type: wine and hard liquor alcohol intake frequency: a few times a month Hx Substance Use: No substance use type: does not use Review of Systems Patient denies chest pain, shortness of breath, fever, chills, cough, wheezing, palpitations. Physical Exam Vital Signs VITALS BP 123/79 P 83 TEMP 98.2 SP02 94%RA RESP 16 PHYSICAL Full neck and c-spine range of motion. Full TMJ range of motion. TMD 3 finger breaths Mallampati Score 3 Dentition: cracked molar per patient, + crowns on molars Lungs: clear throughout to auscultation Cardiac: regular rate and rhythm, no murmurs noted Spine: normal Carotid arteries: negative bruit Extremities: no edema Testing Laboratory Results 11/13/19 11:44 11/13/19 11:44 PT 10.9 Seconds (9.0-12.0) 11/13/19 11:44 INR 1.0 (0.9-1.1) 11/13/19 11:44 APTT 24.4 Seconds (21.0-31.0) 11/13/19 11:44 Blood Type O Positive 11/13/19 11:44 Antibody Screen NEGATIVE 11/13/19 11:44 Surgeon's office made aware of elevated WBC* Electrocardiogram Date: 11/13/19 NSR at 75bpm. NS ST/TWA. Chest X-Ray Date: 11/13/19 FINDINGS: Lung volumes are normal. Linear left lower lung opacity reflects atelectasis or scarring. There is no pneumothorax or pleural effusion. Cardiac size is stable. Mediastinal contours are normal. There is no evidence for pulmonary edema. Mild S-shaped scoliosis of the thoracolumbar spine is incidentally noted. IMPRESSION: No acute cardiopulmonary findings. Echocardiogram Date: 12/26/18 EF 55-60%. No RWMA. Grade I DD. No significant valvular disease.
--- NOTE | 2019-11-13 12:16 | XRay Report ---
XR chest Pre-admission PA/Lat CLINICAL HISTORY: Preoperative evaluation. COMPARISON STUDY: Chest radiograph December 26, 2018. FINDINGS: Lung volumes are normal. Linear left lower lung opacity reflects atelectasis or scarring. T here is no pneumothorax or pleural effusion. Cardiac size is stable. Mediastinal contours are normal. There is no evidence for pulmonary edema. Mild S-shaped scoliosis of the thoracolumbar spine is inci dentally noted. IMPRESSION: No acute cardiopulmonary findings. ACT 112: Negative or not required by law. Electronically signed by: Az Ballesteros M.D. 11/13/2019 12:14 PM
[2019-11-13 12:23] LABS: Basophils # (auto) 0.02 K/uL (0-0.2); Basophils % (auto) 0.2 %; Eosinophils # (auto) 0.09 K/uL (0-0.5); Eosinophils % (auto) 0.7 %; Hematocrit (blood only) 44.3 % (37-47); Hemoglobin 14.2 g/dL (12.0-16.0); Immature Granulocytes # (auto) 0.06 K/uL (0.00-0.02); Immature Granulocytes % (auto) 0.5 %; Lymphocytes # (auto) 2.82 K/uL (1.2-3.4); Lymphocytes % (auto) 21.7 %; Mean Corpuscular Hemoglobin 29.2 pg (25-34); Mean Corpuscular Hgb Conc 32.1 g/dL (32-36); Mean Corpuscular Volume 91.2 fL (80-100); Mean Platelet Volume 9.5 fL (7.4-10.4); Monocytes # (auto) 0.64 K/uL (0.11-0.59); Monocytes % (auto) 4.9 %; Neutrophils # (auto) 9.39 K/uL (1.4-6.5); Platelet Count 308 K/uL (130-400); RDW Coefficient of Variation 15.6 % (11.5-14.5); RDW Standard Deviation 52.3 fL (36.4-46.3); Red Blood Count 4.86 M/uL (4.2-5.4); White Blood Count 13.02 K/uL (4.8-10.8)
[2019-11-13 12:37] LABS: Partial Thromboplastin Ratio 0.9; Partial Thromboplastin Time 24.4 Seconds (21.0-31.0); Prothrombin Time 10.9 Seconds (9.0-12.0)
[2019-11-13 13:09] LABS: BUN Creatinine Ratio 24.7 (10-20); C Reactive Protein 0.32 mg/dl (0-0.29); Calcium 8.8 mg/dl (8.5-10.1); Creatinine Clr Calc Pharmacy 53.4 ml/min; Est GFR (African American) 61.4; Potassium 3.6 mmol/L (3.5-5.1)
--- NOTE | 2019-11-13 14:02 | Electrocardiogram Report ---
Test Reason : Blood Pressure : / mmHG Vent. Rate : 075 BPM Atrial Rate : 075 BPM P-R Int : 146 ms QRS Dur : 100 ms QT Int : 382 ms P-R-T Axes : 036 030 040 degrees QTc Int : 426 ms Normal sinus rhythm Nonspecific ST and T wave abnormality Abnormal ECG When compared with ECG of 26-DEC-2018 09:05, Sinus rhythm has replaced Atrial fibrillation Vent. rate has decreased BY 76 BPM Nonspecific T wave abnormality, improved in Inferior leads Nonspecific T wave abnormality now evident in Anterior leads Confirmed by Crow Krause ([id number]) on 11/13/2019 2:01:41 PM Referred By: Handy Becerril Confirmed By:Crow Krause
--- NOTE | 2019-12-08 22:53 | History and Physical Report ---
DATE OF ADMISSION: 12/14/2019 CHIEF COMPLAINT: Bilateral knee pain and discomfort, right side greater than left. HISTORY OF PRESENT ILLNESS: The patient is a 74-year-old female who recently moved to this area about 2 years ago, and now presents for surgical treatment of her right knee primarily. She has got a long history of bilateral knee pain and discomfort, right side greater than left. She has been through extensive conservative treatment provided by Dr. Paulino at [facility]. She has been through therapy and all kinds of injections and oral medicines which have not helped recently. She cannot take NSAIDs as she is on Eliquis for atrial fibrillation. Pain has become more unbearable. She can walk a couple of blocks and that is about it. It is affecting her quality of life and ability to maintain any degree of active lifestyle. She would like to proceed with surgical treatment of her right knee. PAST MEDICAL HISTORY: 1. Hypertension. 2. Elevated cholesterol. 3. Atrial fibrillation, although her preoperative EKG has normal sinus rhythm. 4. Unspecified autoimmune disorder with skin issues and IV immunoglobulin infusions at [place]. 5. Squamous cell cancer. PAST SURGICAL HISTORY: Include: 1. Vaginal cyst removal. 2. Colonoscopy. 3. Cataract surgery. ALLERGIES: ASPIRIN. CURRENT MEDICINES: Include: 1. Eliquis 5 mg twice a day. 2. Hydrochlorothiazide 25 mg a day. 3. Toprol. 4. Omeprazole 40 mg a day. 5. Magnesium oxide. 6. Probiotic. 7. Glucosamine. SOCIAL HISTORY: A 74-year-old female. She is . Does not smoke. Occasional wine use. FAMILY HISTORY: Noncontributory. REVIEW OF HISTORY: Negative for diabetes, neurologic problems, vascular problems or bleeding disorders. She is on Eliquis for atrial fibrillation, but currently was in sinus rhythm on her preoperative EKG. She does have autoimmune disease and gets IV immunoglobulin infusions at [place]. PHYSICAL EXAMINATION: GENERAL: Shows a pleasant elderly female. Looks to be in pretty good health. HEENT: Benign. NECK: Supple, no lymphadenopathy. LUNGS: Clear to auscultation. HEART: Has regular rate and rhythm. ABDOMEN: Soft, nontender, nondistended. EXTREMITIES: Grossly neurovascularly intact except as follows: Examination of both knees reveals the patient walks with antalgic gait. She has got varus alignment to both knees. She has got bony hypertrophy medially. Range of motion is pretty symmetric with about 10 degrees short of full extension to 120 degrees of flexion. There is no instability on either side. No particular pain with hip motion. X-RAYS: X-rays of both knees reveal advanced bilateral medial compartment DJD. She has got complete loss of medial joint space on both sides. She has got some patellofemoral arthritis. She has subchondral sclerosis. A little bit of tibial femoral subluxation. Both knees are about the same. ASSESSMENT: A 74-year-old female with history of atrial fibrillation and unspecified autoimmune disorder affecting her skin along with hypertension, elevated cholesterol with advanced bilateral knee degenerative joint disease. She has failed conservative treatment. The right knee is bothering more than left. She would like to proceed with right knee replacement. PLAN: We will proceed with right total knee replacement. The risks and benefits of this procedure were explained to the patient including but not limited to DVT, PE, , infection, neurological injury, vascular injury, bleeding problem, pain, limited range of motion, stiffness, failure with relief of symptoms, incomplete relief of symptoms, need for further surgery in future, fracture, leg length inequality, nerve palsy, persistent pain, etc. The patient understands and desires to proceed. Informed consent was obtained. We will likely place some antibiotic in her cement due to her immunocompromised status due to her autoimmune disorder. We will hold her Eliquis 3 days preoperatively. We will use Eliquis for DVT prophylaxis postoperatively. She is hoping to be discharged home using home health program along with her 's assistance.
[~2019-12-14 06:24] MED LIST: ACETAMINOPHEN 500 MG TAB PO SCH; BUPIVACAINE 0.25% 30 ML VIAL ONE; BUPIVACAINE 0.5 % 5 MG/1 ML PF 10ML VIAL ONE; BUPIVACAINE LIPOSOME/PF 266 MG, BUPIVACAINE/EPINEPHRINE 50 ML, SODIUM CHLORIDE 0.9% 30 ... INFIL SCH; CEFAZOLIN 2000MG 2,000 MG/15 ML SYR IV SCH; FAMOTIDINE 20 MG TAB PO SCH; GABAPENTIN 300 MG CAP PO SCH; LR 500ML BOLUS, THEN 15ML/HR IV SCH; LR 60ML/HR IV SCH; METOCLOPRAMIDE HCL 10 MG TABLET PO SCH; TRANEXAMIC ACID 1,000 MG **IV Intra-op IV SCH
--- NOTE | 2019-12-14 06:53 | History & Physical Bridge Note ---
Date of Service December 14, 2019 History & Physical Bridge Note I have examined the patient, reviewed the History & Physical and in the interval since the performance of the History & Physical I have noted the following changes of clinical significance: no changes noted
[2019-12-14] MEDS ORDERED: MIDAZOLAM HCL 1 MG/ML 2ML VIAL ONE (07:44)
[2019-12-14] MEDS ORDERED: fentaNYL citrate 100 MCG/2 ML VIAL ONE (07:44)
[2019-12-14] MEDS ORDERED: SODIUM CHLORIDE 0.9% PF 50 ML VIAL ONE (08:42)
[2019-12-14] MEDS ORDERED: BUPIVACAINE/EPINEPHRINE 0.25% 1:200,000 30 ML VIAL ONE (08:42)
[2019-12-14] MEDS ORDERED: BACITRACIN INJ 50,000 UNIT VIAL ONE (08:43)
[2019-12-14] MEDS ORDERED: BUPIVACAINE LIPOSOME 1.3% 266 MG/20 ML VIAL ONE (08:43)
[2019-12-14] MEDS ORDERED: ATROPINE SULFATE 0.1 MG/ML 10ML SYR IV PRN (09:01)
[2019-12-14] MEDS ORDERED: ePHEDrine sulfate 50 MG/ML AMP IV PRN (09:01)
[2019-12-14] MEDS ORDERED: fentaNYL citrate 100 MCG/2 ML VIAL IV PRN (09:01)
[2019-12-14] MEDS ORDERED: ONDANSETRON INJ 2 MG/ML 2 ML VIAL IV PRN ×2 (09:01→12:01)
[2019-12-14] MEDS ORDERED: VANCOMYCIN HCL 1000MG/20ML VIAL ONE (09:22)
[2019-12-14] MEDS ORDERED: PHENYLEPHRINE HCL 10 MG/ML VIAL ONE (09:23)
[2019-12-14] MEDS ORDERED: PHENYLEPHRINE 100MCG/ML 5ML SYR ONE (09:23)
[2019-12-14] MEDS ORDERED: ONDANSETRON INJ 2 MG/ML 2 ML VIAL ONE (09:23)
[2019-12-14] MEDS ORDERED: LIDOCAINE HCL 2% 2 ML VIAL/AMP(20MG/ML) INFIL ONE (09:23)
[2019-12-14] MEDS ORDERED: PROPOFOL IV EMULSION 10 MG/ML 20 ML VIAL IV ONE ×2 (09:23→10:17)
--- NOTE | 2019-12-14 10:43 | Post Operative Brief Note ---
PG Immediate Post Op with CF Date of Surgery December 14, 2019 Pre & Post Diagnosis Operation Date: 12/14/19 08:50 Pre-Op Diagnosis: Right Knee Degenerative Joint Disease Post-Op Diagnosis: Right Knee Degenerative Joint Disease I identified the patient and participated in the time-out.: Yes Procedure Operation Date: 12/14/19 08:50 Actual Procedures p Right Total Knee Arthroplasty(Right) - Handy Becerril MD Surgeon Handy Becerril MD Hospitality Ambassador Pepe, PAC Estimated Blood Loss 50 Findings Consistent with Post-Op Diagnosis Fluids 1400 cc Specimens Specimen Description: A. Right knee bone and tissue Anesthesia Type Spinal MAC Complications none Disposition Accompanied Patient To Recovery: No Disposition: Recovery Room
--- NOTE | 2019-12-14 11:11 | Operative Report ---
Post Operative Report Pre & Post Diagnosis Operation Date: 12/14/19 08:50 Pre-Op Diagnosis: Right Knee Degenerative Joint Disease Post-Op Diagnosis: Right Knee Degenerative Joint Disease I identified the patient and participated in the time-out.: Yes Procedure Operation Date: 12/14/19 08:50 Actual Procedures p Right Total Knee Arthroplasty(Right) - Handy Becerril MD Surgeon Handy Becerril MD Pricing Manager Pepe, PAC Estimated Blood Loss 50 Findings Consistent with Post-Op Diagnosis Operative findings revealed advanced right knee DJD. She had extensive grade 4 changes and bony eburnation of the medial femoral condyle medial tibial plateau. She had some spotty grade 4 changes the patellofemoral joint as well as the lateral compartment. She tibiofemoral subluxation. She had a varus deformity to her knee. Fluids 1400 cc. Specimens Right knee sent for pathology. Drains None. Anesthesia Type Spinal MAC Complications none Disposition Accompanied Patient To Recovery: No Disposition: Recovery Room Indications Patient is 74-year-old female is had a long history of bilateral knee pain discomfort right side greater than left. She is been through extensive conservative treatment the past which become less successful over time. Unable to take NSAIDs due to her Eliquis requirement. X-ray showed advanced right knee DJD. She elected proceed with surgical treatment of her right knee. Description of Procedure Operative implants consist of: 1. Biomet Vanguard sized 65 right posterior by femoral component. 2. Biomet size 67 tibial tray. 3. 14 mm posterior stabilized polyethylene insert. 4. 28 x 8 all poly-patella. Patient was taken to the operating identified placed in the operative table supine position protectors were properly padded. IV antibiotics arrived by anesthesia team. A spinal anesthetic and abductor canal block had provided in the holding area. Funk catheter was placed in sterile fashion. Right catheter was then placed in the right lower extremities and prepped draped in usual sterile fashion. The right leg was elevated exsanguinated with use of an Esmarch and turns placed at 300 mmHg. An anterior approach to the right knee was then performed to longitudinal incision centered over the patella. Sharp dissection was got through subcutaneous tissue down to the extensor mechanism. A medial parapatellar arthrotomy incision was made. Some subperiosteal dissection was carried out medially. The fat pad was resected beneath patella tendon. Lateral patellofemoral ligament was released. Patella was subluxated laterally and the knee was flexed. The osteophytes were taken off the distal femur. The ACL and PCL were then released from distal femur the tibia subluxate anteriorly. The external tibial alignment jig was then placed in the interface the tibia and adjusted 14 mm medially. Proximal tibial cut was made to move about a millimeter bone for the most efficient aspect medial tibial plateau. Some osteophytes were taken off medial and posterior medially. Tibia was then sized to a size 67. Attention drawn the femur. The distal femur then with a sharp drop with intramedullary canal and suction. A right 5 degree valgus cutting guide was placed. The distal femoral cutting block was pinned in place but distal femoral cut was made to take an additional 3 mm off the distal femur. The femur was then sized to a size 65. We did downsize this about a half a size. The AP cutting block was pinned parallel to the epicondylar axis which was 4 degrees of external rotation. The anterior cut, anterior chamfer, posterior cut, posterior chamfer cuts were made. Box cu tting guide was placed in a just slight lateral and the box cut was made. The knee was flexed. The remnants of medial lateral menisci were excised. The osteophytes were taken off the posterior aspect the femur. A trial femoral component was placed. The tibial tray was pinned in maximum ex rotation and the drill and stem punch were used to create defect in proximal tip for the tibial tray. Knee was then trialed and the 14 mm insert fit most appropriately. Attention drawn the patella. Nupathe patella was cleaned of all soft tissues. Patella thickness measured 21 mm and cut down to 13. Was sized to a size 28 patella. Locals were drilled for the 28 patella. Lateral osteophytes removed. Patella button was placed. Knee was taken through range of motion patella tracked nicely with no thumbs test. Attention drawn to place the permanent components. All trial components were removed. Bone plug was placed in the distal femur limit blood loss. A double batch Palacos G cement was mixed. I did add an additional gram of vancomycin due to immunodeficiency/autoimmune disease. A Biomet size 65 right posterior by femoral component, size 67 tibial tray, a 14 mm posterior box polyethylene insert, and a 28 x 8 all poly-patella then cement placed. The knee was brought out into full extension total cement hardened. Final cement check was then performed. The pericapsular tissues were injected with total 100 cc of combination of 20 cc of Exparel, 30 cc normal saline, 50 cc of quarter percent Marcaine with epinephrine. The patient did receive 1 g of tranexamic acid. The tourniquet was then let down for final turn time 52 minutes. Hemostasis reduced electrocautery. Extensor mechanism closed with combination 1 PDS suture #1 Vicryl suture in a [id number] fashion. Ext ensor mechanism checked found to be intact with the subcutaneous tissue then closed with 2 Dexon suture in buried knot fashion skin was closed with 3-0 nylon suture in a horizontal mattress fashion due to her concern for wound healing in her immunodeficiency. Sterile bandage composed of Xeroform, 4 x 4's, sterile cast padding Marcell bandage were applied. Patient then transferred to the recovery in stable condition. Patient tolerated procedure well and there were no complications. Dusty Cantu, physician refinery operator assistant, was present for the entire procedure. His assistance was critical and essential to proper patient positioning, prepping and draping, surgical exposure, performing the technical details of the operation, placing the implants, closure of the wound, and placement of the sterile bandage. I attest to the content of the Intraoperative Record and any orders documented therein. Any exceptions are noted below.
--- NOTE | 2019-12-14 11:12 | XRay Report ---
XR knee RT 1 or 2V routine CLINICAL HISTORY: Postoperative evaluation. COMPARISON: Knee radiographs 10/11/2019. FINDINGS: Alignment of the total right knee arthroplasty is anatomic. There is no fracture or unexpe cted radiopaque foreign body. Hardware is intact. IMPRESSION: Expected findings following total right knee arthroplasty. ACT 112: Negative or not required by law. Electronically signed by: Az Ballesteros M.D. 12/14/2019 11:11 AM
[2019-12-14] MEDS ORDERED: MAGNESIUM HYDROXIDE SUSP 30 ML UDC PO PRN (12:01)
[2019-12-14] MEDS ORDERED: ALUMINUM/MAGNESIUM SUSP 30 ML UDC PO PRN (12:01)
[2019-12-14] MEDS ORDERED: bisacodyL 10 MG SUPP PR PRN (12:01)
[2019-12-14] MEDS ORDERED: NALOXONE HCL 0.4 MG/1 ML VIAL/CARP IV PRN (12:01)
[2019-12-14] MEDS ORDERED: HYDROmorphone INJ 0.5 MG/0.5 ML SYR IV PRN (12:01)
[2019-12-14] MEDS ORDERED: METOCLOPRAMIDE HCL INJ 5 MG/ML 2 ML VIAL IV PRN (12:01)
[2019-12-14] MEDS: SODIUM CHLORIDE 0.9% 1000ML 1,000 ML IV SCH ×2 (12:37→22:33)
--- NOTE | 2019-12-14 13:12 | Anesthesiology Progress Note ---
Date of Service December 14, 2019 Anesthesia Post Procedure Vital Signs Vital Signs: Temp Pulse Pulse Pulse Resp BP BP 12/14/19 13:03 36.7 C 71 16 130/70 12/14/19 12:30 36.5 C 72 20 126/78 12/14/19 12:16 12/14/19 12:00 36.9 C 69 18 116/67 12/14/19 11:40 36.6 C 67 15 107/69 12/14/19 11:30 36.6 C 71 15 109/59 L 12/14/19 11:20 36.6 C 71 16 106/63 12/14/19 11:10 71 20 91/57 L 12/14/19 11:00 74 21 91/57 L 12/14/19 10:50 37.0 C 92 H 98 H 86/52 L 12/14/19 07:51 80 20 133/84 12/14/19 07:02 37.1 C 98 H 20 128/87 Pulse Ox 12/14/19 13:03 96 12/14/19 12:30 96 12/14/19 12:16 98 12/14/19 12:00 99 12/14/19 11:40 95 12/14/19 11:30 98 12/14/19 11:20 97 12/14/19 11:10 97 12/14/19 11:00 96 12/14/19 10:50 98 12/14/19 07:51 97 12/14/19 07:02 97 Pain Intensity Right Knee: Pain Intensity: 0 Transfer of Care Handoff Completed per policy Notes Mental Status: alert / awake / arousable and participated in evaluation Nausea / Vomiting: adequately controlled Pain: adequately controlled Airway Patency, RR, SpO2: stable & adequate BP & HR: stable & adequate Hydration State: stable & adequate Neuraxial Anesthesia: was administered and sensory block is resolving Anesthetic Complications: no major complications apparent and Pt Satisfied with anesthetic care
[2019-12-14] MEDS: ACETAMINOPHEN 500 MG TAB PO SCH ×2 (13:13→21:11)
[2019-12-14] MEDS: KETOROLAC TROMETHAMINE 15 MG/ML VIAL IV SCH ×3 (13:16→23:58)
[2019-12-14] MEDS: TRAMADOL HCL 50 MG TABLET PO PRN ×2 (15:27→22:34)
[2019-12-14] MEDS ORDERED: TRANEXAMIC ACID / 0.7% NACL 1,000 MG/100 ML BAG IV SCH (16:46)
[2019-12-14] MEDS: CEFAZOLIN 2000MG 2,000 MG/15 ML SYR IV SCH ×2 (17:19→23:58)
[2019-12-14] MEDS: FERROUS GLUCONATE 324 MG TAB PO SCH (17:30)
[2019-12-14] MEDS: ASCORBIC ACID 500 MG TAB PO SCH (17:30)
[2019-12-14] MEDS: METOPROLOL SUCC 25MG EXT REL TAB PO SCH (20:42)
[2019-12-14] MEDS: DOCUSATE SODIUM 100 MG CAP PO SCH (20:42)
[2019-12-14] MEDS: SENNA 8.6 MG TAB PO SCH (20:42)
[2019-12-14] MEDS: PRAVASTATIN SOD 40 MG TAB PO SCH (20:42)
[2019-12-15] MEDS: ACETAMINOPHEN 500 MG TAB PO SCH ×3 (05:53→21:57)
[2019-12-15] MEDS: KETOROLAC TROMETHAMINE 15 MG/ML VIAL IV SCH ×3 (05:53→18:54)
[2019-12-15 06:08] LABS: Hematocrit (blood only) 34.5 % (37-47); Hemoglobin 11.1 g/dL (12.0-16.0); Mean Corpuscular Hemoglobin 29.4 pg (25-34); Mean Corpuscular Hgb Conc 32.2 g/dL (32-36); Mean Corpuscular Volume 91.5 fL (80-100); Mean Platelet Volume 9.3 fL (7.4-10.4); Platelet Count 232 K/uL (130-400); RDW Coefficient of Variation 14.8 % (11.5-14.5); Red Blood Count 3.77 M/uL (4.2-5.4); White Blood Count 8.59 K/uL (4.8-10.8)
[2019-12-15 06:56] LABS: BUN Creatinine Ratio 17.2 (10-20); Calcium 7.8 mg/dl (8.5-10.1); Creatinine Clr Calc Pharmacy 61.2 ml/min; Est GFR (African American) 73.5; Est GFR (Non-African American) 63.4; Potassium 3.7 mmol/L (3.5-5.1)
[2019-12-15] MEDS: PANTOprazole 40 MG TAB PO SCH (07:56)
--- NOTE | 2019-12-15 08:18 | Anesthesiology Progress Note ---
Date of Service December 15, 2019 Anesthesia Post Procedure Vital Signs Vital Signs: Temp Pulse Pulse Resp BP BP Pulse Ox 12/15/19 07:11 37.1 C 75 16 109/68 90 12/15/19 03:49 36.6 C 75 15 100/62 92 12/14/19 23:49 36.9 C 75 15 109/67 91 12/14/19 20:40 83 144/81 H 12/14/19 19:36 36.7 C 81 18 117/77 92 12/14/19 15:17 36.6 C 68 16 124/79 95 12/14/19 14:00 36.8 C 75 20 128/80 96 12/14/19 13:03 36.7 C 71 16 130/70 96 12/14/19 12:30 36.5 C 72 20 126/78 96 12/14/19 12:16 98 12/14/19 12:00 36.9 C 69 18 116/67 99 12/14/19 11:40 36.6 C 67 15 107/69 95 12/14/19 11:30 36.6 C 71 15 109/59 L 98 12/14/19 11:20 36.6 C 71 16 106/63 97 12/14/19 11:10 71 20 91/57 L 97 12/14/19 11:00 74 21 91/57 L 96 12/14/19 10:50 37.0 C 92 H 98 H 86/52 L 98 Pain Intensity Right Knee: Pain Intensity: 0 Notes Mental Status: alert / awake / arousable and participated in evaluation Patient Amnestic to Procedure: Yes Nausea / Vomiting: adequately controlled Pain: adequately controlled Airway Patency, RR, SpO2: stable & adequate BP & HR: stable & adequate Hydration State: stable & adequate Neuraxial Anesthesia: was administered and sensory block resolved Anesthetic Complications: no major complications apparent and Pt Satisfied with anesthetic care
[2019-12-15] MEDS: FERROUS GLUCONATE 324 MG TAB PO SCH ×2 (08:36→17:44)
[2019-12-15] MEDS: ASCORBIC ACID 500 MG TAB PO SCH ×2 (08:36→17:44)
[2019-12-15] MEDS: MULTIVITAMIN TAB PO SCH (08:37)
[2019-12-15] MEDS: DOCUSATE SODIUM 100 MG CAP PO SCH ×2 (08:37→21:57)
[2019-12-15] MEDS: LACTOBACILLUS ACIDOPHILUS (FLORANEX) TAB PO SCH (08:37)
[2019-12-15] MEDS: MAGNESIUM OXIDE 400 MG TAB PO SCH (08:37)
[2019-12-15] MEDS: CALCIUM CARBONATE 1250MG TAB PO SCH (08:37)
[2019-12-15] MEDS: hydroCHLOROthiazide 25 MG TAB PO SCH (08:37)
[2019-12-15] MEDS ORDERED: NON-FORMULARY MEDICATION (Ascorbic Acid (Vitamin C) [Vitamin C] 1 GM) PO SCH (09:00)
[2019-12-15] MEDS ORDERED: NON-FORMULARY MEDICATION (Biotin 1 MG) PO SCH (09:00)
--- NOTE | 2019-12-15 09:01 | Progress Notes ---
DATE: 12/15/2019 SUBJECTIVE: A 74-year-old female postop day 1 from right knee replacement. She is doing pretty well. Some knee pain but manageable. No chest pain or shortness of breath. Not feeling dizzy or lightheaded. OBJECTIVE: VITAL SIGNS: Temperature 37.1. Vital signs stable. GENERAL: Shows a pleasant elderly female. She is lying in bed, looks pretty comfortable. She is doing her knee exercises when I visited her this morning. LUNGS: Clear to auscultation. HEART: Has a regular rate and rhythm. ABDOMEN: Soft, nontender, nondistended. EXTREMITIES: Grossly neurovascularly intact except as follows. Examination of the right leg reveals the dressing to be clean, dry and intact. She can do a straight leg raise with quite a bit of effort. She can dorsiflex and plantarflex her foot appropriately. She is neurologically intact. LABORATORY DATA: Hemoglobin 11.1. Hematocrit 34.5. Electrolytes are stable. ASSESSMENT: A 74-year-old female postop day 1 from right knee replacement, doing reasonably well. Her pain has been controlled. She is neurologically intact. PLAN: 1. DVT prophylaxis including thigh-high TEDs, SCDs, and aspirin twice a day. 2. PT/OT. She can weightbear as tolerated. Right lower extremity. 3. Pain control, doing okay with current pain regimen. 4. Disposition: She is planning to be discharged to home with some home health and her 's assistance once medically stable and adequately recovered.
[2019-12-15] MEDS: TRAMADOL HCL 50 MG TABLET PO PRN ×2 (12:41→22:03)
[2019-12-15] MEDS: APIXABAN 2.5 MG TAB PO SCH ×2 (12:42→21:56)
[2019-12-15] MEDS: SENNA 8.6 MG TAB PO SCH (21:56)
[2019-12-15] MEDS: PRAVASTATIN SOD 40 MG TAB PO SCH (21:57)
[2019-12-15] MEDS: METOPROLOL SUCC 25MG EXT REL TAB PO SCH (21:57)
[2019-12-16] MEDS: KETOROLAC TROMETHAMINE 15 MG/ML VIAL IV SCH ×2 (00:27→06:32)
[2019-12-16] MEDS: ACETAMINOPHEN 500 MG TAB PO SCH (06:32)
[2019-12-16] MEDS: APIXABAN 2.5 MG TAB PO SCH (07:40)
[2019-12-16] MEDS: LACTOBACILLUS ACIDOPHILUS (FLORANEX) TAB PO SCH (07:40)
[2019-12-16] MEDS: hydroCHLOROthiazide 25 MG TAB PO SCH (07:40)
[2019-12-16] MEDS: PANTOprazole 40 MG TAB PO SCH (07:40)
[2019-12-16] MEDS: ASCORBIC ACID 500 MG TAB PO SCH (07:41)
[2019-12-16] MEDS: MULTIVITAMIN TAB PO SCH (07:41)
[2019-12-16] MEDS: DOCUSATE SODIUM 100 MG CAP PO SCH (07:41)
[2019-12-16] MEDS: FERROUS GLUCONATE 324 MG TAB PO SCH (07:41)
[2019-12-16] MEDS: CALCIUM CARBONATE 1250MG TAB PO SCH (07:41)
[2019-12-16] MEDS: MAGNESIUM OXIDE 400 MG TAB PO SCH (07:41)
--- NOTE | 2019-12-16 09:22 | Progress Notes ---
DATE: 12/16/2019 SUBJECTIVE: A 74-year-old female postop day 2 from right knee replacement. She is doing pretty well. A bit more painful yesterday, been doing better this morning. No chest pain or shortness of breath. Not feeling dizzy or lightheaded. She is having a little difficulty lifting her leg, which is unusual. OBJECTIVE: VITAL SIGNS: Temperature 36.9. Vital signs stable. EXTREMITIES: Examination of the right leg reveals the leg to be well aligned. Dressing is clean, dry and intact. Calf is soft and supple. She is neurologically intact. ASSESSMENT: A 74-year-old female postop day 2 from a right knee replacement, doing pretty well. Pain is bit improved. She is having trouble lifting her leg which is normal at this point. PLAN: 1. DVT prophylaxis including thigh-high TEDs, SCDs, and eliquis twice a day. Will discharge on therapeutic dose. 2. PT/OT. Weight bear as tolerated. Right total knee protocol. 3. Pain control, doing okay with current pain regimen. 4. Disposition: Plan to discharge to home with some home health later today. KINGAD
[2019-12-16] MEDS: TRAMADOL HCL 50 MG TABLET PO PRN (09:38)
--- NOTE | 2019-12-24 06:47 | Discharge Summary ---
Date of Service December 24, 2019 Admission HPI Per Admitting Provider Documented in the H & P Admission Exam (Per Admitting) Constitutional Documented in the H & P Discharge Data Consultations 12/14/19 12:01 Consult Case Management - Discharge Planning Routine Procedures Performed Operation Date: 12/14/19 08:50 Actual Procedures p Right Total Knee Arthroplasty(Right) - Handy Becerril MD Hospital Course (1) Status post total right knee replacement: This patient is a 74 year old female admitted on 12/14/19 and underwent total knee replacement. She tolerated the procedure well and there were no complications. Transferred to the PACU post op and later to the orthopedic floor for further care. She was given ancef for antibiotic prophylaxis. She was also given KOBE stockings, SCDs, and eliquis for DVT prophylaxis. Hemoglobin, hematocrit, and vital signs were monitored during her hospital stay and remained stable. Did not require any blood transfusions. There were no complications during her hospital stay. By post op day #2 the patient was tolerating a regular diet, pain was reasonably controlled with oral pain medicine, and she was participating in physical therapy. On post op day #2 the patient was discharged home and set up with home health care. She was given printed discharge instructions including prescriptions for extra strength tylenol and tramadol. Continue physical therapy, weight bearing as tolerated. Continue KOBE stockings. Follow up approximately 2 weeks post op or sooner if there are problems or concerns. Coding Level of Care Code None Diagnoses Status post total right knee replacement Z96.651
== END 2019-12-16 11:08 | disposition home health service (06) ==
LOC: ASU 06:24 → 3E 06:24

== ENCOUNTER 2022-09-29 11:48 | Observation (INO) ==
[2022-09-29] MEDS ORDERED: MAGNESIUM SULFATE / D5W 1 GM/100 ML BAG IV STA (11:56)
[2022-09-29] MEDS ORDERED: SODIUM CHLORIDE 0.9% 500 ML IV STA (11:56)
[2022-09-29] MEDS ORDERED: METOPROLOL TARTRATE 1 MG/ML VIAL IV STA ×3 (11:56→14:17)
--- NOTE | 2022-09-29 12:21 | Emergency Department Note ---
Impression & Plan Atrial fibrillation with RVR, Hypokalemia ED Provider Note NAME: STEPHANY RODRIGUES AGE: 76 SEX: F : 1945 ARRIVES VIA: Walk-In INFORMANT: Patient, ED PROVIDER(S): Travis Mathur DO CHIEF COMPLAINT: Palpitations HPI: The patient is a 76-year-old female who presented to the emergency department for palpitations. The patient states that she has a history of atrial fibrillation but also had SVT many years ago. She had ablation for SVT. She states that today she was cleaning her garage when she noticed an acute onset of palpitations and fast heart rate. The patient does take a blood thinner as well as a beta-kenya. She states that she has been compliant with her outpatient medications. She denies having any fever or cough. She denies having any chest pain. She does complain of a dry mouth. The patient was going to go see her family doctor but instead came to the emergency department. She states that she has no chest pain. She has had no leg swelling. She was recently started on a medication 3 weeks ago for peripheral neuropathy. She is unsure if this could be related to today's episode. ROS: See above HPI for pertinent positives & negatives. A total of 10 systems reviewed and were otherwise negative. PAST MEDICAL HISTORY: See Below PAST SURGICAL HISTORY: See Below FAMILY HISTORY: See Below SOCIAL HISTORY: See Below HOME MEDICATIONS: See Below ALLERGIES: See Below VITALS: See Below PHYSICAL EXAMINATION: GENERAL: The patient is awake and alert. The patient is very anxious. EYES: The conjunctivae are clear. The pupils are round and reactive. EARS, NOSE, MOUTH AND THROAT: The nose is without any evidence of any deformity. NECK: The neck is nontender and supple. RESPIRATORY: Normal respiratory effort is noted there is no evidence of wheezing rhonchi or rales CARDIOVASCULAR: Tachycardic and regular heart sounds were noted to auscultation. There is no definite murmur GASTROINTESTINAL: The abdomen is soft. Abdomen is nontender. MUSCULOSKELETAL/EXTREMITIES: There is no evidence of gross deformity full range of motion is noted in the hips and shoulders. SKIN: Trace pedal edema was noted bilaterally. Skin was warm and dry NEUROLOGIC: Patient is awake alert and oriented x3 MEDICAL DECISION MAKING: The patient is a 76-year-old female who presented to the emergency department for an evaluation of palpitations. The patient has a history of paroxysmal atrial fibrillation but is normally in sinus rhythm. The patient has been compliant with her outpatient medications. She was found to be in rapid atrial fibrillation initially. She was treated with multiple doses of IV Lopressor. She was also given IV fluids IV magnesium and oral potassium replacement. I discussed patient's laboratory and radiographic studies with her. She continued to be in rapid atrial fibrillation. I discussed her condition with her primary chief mate. At 1 point EKG could have been consistent with MAT. For this reason a pulmonary cause for her dysrhythmia was sought. CT of the chest shows no signs of venous thromboembolic disease. [facility] They have agreed to evaluate the patient in the emergency department for further management and disposition. Triage Nursing notes reviewed. Prior medical records reviewed Vital Signs: reviewed and remarkable for tachycardia and hypertension. Differential diagnosis: Premature contractions, electrolyte abnormality, cardiac dysrhythmia, thyroid dysfunction, pulmonary embolism, infection, gastrointestinal, as well as other pathologies. ER treatment provided: See below Diagnostics interpreted by me: ECG: EKG was obtained in the emergency department. My interpretation is atrial fibrillation at 147 bpm. RVR was appreciated. Nonspecific ST segment and poor R wave progression was noted. This was compared to a tracing from October 22, 2020. Atrial fibrillation has replaced sinus rhythm compared to the previous tracing. A second EKG was obtained in the emergency department. My interpretation is atrial fibrillation versus MAT at 107 bpm. No PVCs were noted. Nonspecific ST segment abnormalities are still present. The rate has decreased compared to the earlier tracing. Otherwise no significant changes. 30 EKG was obtained in the emergency department after the administration of Cardizem. My interpretation is atrial fibrillation at 93 bpm. There was no ST segment elevations noted. This compares favorably to the earlier tracing. Cardiac Monitoring: An order was placed for continuous cardiac monitoring. The monitor shows a rate of 93 bpm with atrial fibrillation. Laboratory studies: As stated above and show below. Imaging studies: See below. Radiographic imaging was reviewed by myself Consultation(s): I discussed this case with Dr Christensen I discussed this case with Irina who is [facility] ED COURSE: Procedures: none Critical Care: I have personally spent greater than 45 minutes of critical care time in the direct management of this patient. This includes bedside care, interpretation of diagnostic studies, and testing, discussion with consultants, patient, and family members, and other required patient management activities. This 45 minutes is in excess of all separately billable procedures. Past Med/Surg History Medical History RYAN positive Anxiety no meds Atrial fibrillation Follows with [facility] cardiology (Dr. Christensen) Encounter for pre-operative examination Epidermolysis bullosa acquisita diagnosed 2013, has had multiple therapies in the past, recent flare (upper extremity/mouth blistering), recent predisone (to be completed week of 11/12), follows with dermatology (Dr. Rubalcava/Dr. Hurtado- [facility]), all blistering improving as of 11/12 PAT visit GERD (gastroesophageal reflux disease) Hyperlipidemia Hypertension IBS (irritable bowel syndrome) Left knee DJD Liver cyst monitoring Neuropathy Osteoarthritis PVC's (premature ventricular contractions) hx Rheumatoid arthritis no meds Squamous cell carcinoma s/p excision (knee, chest, r/l arms) Thyroid nodule Surgical History History of biopsy of bladder benign History of bowel resection benign tumor, 3 ft removed History of cardiac radiofrequency ablation History of cataract surgery History of colonoscopy History of dilatation and curettage History of esophagogastroduodenoscopy (EGD) History of gynecologic surgery vaginal cyst removal History of surgery skin cancer removed off both hands History of total knee replacement S/P thyroid biopsy nodules on thyroid, benign Status post medial meniscus repair left knee Family History Mother Hearing loss Allergies Asthma Heart disease Hypertension Father Hearing loss Allergies Heart disease Hypertension Brother Cancer Other No family history of adverse response to anesthesia No family history of bleeding disorder Social History Smoking Status: Never smoker Second Hand Exposure: No; Do You Dip or Chew Tobacco: No; Hx Alcohol Use: Yes Alcohol type: wine and hard liquor Alcohol Intake Frequency Comment: Social Hx Substance Use: No Preferred Language: Syrian Communication Ability: Effective Visual Impairment: No Limitations Tool Planner Required: No Beliefs That Will Affect Care: None marital status: Current Living Situation: Spouse current occupational status: retired How many Children do You have: 3 Feels Safe at Home: Yes Assistive Devices: Walker Allergies Allergies Allergy/AdvReac Type Severity Reaction Status Date / Time IgA less than or equal to 50 Allergy Rash, Verified 09/11/22 08:42 mcg/mL headache, [From Privigen] itching immune globulin,gamma (IgG) Allergy Rash, Verified 09/11/22 08:42 human headache, [From Privigen] itching proline [From Privigen] Allergy Rash, Verified 09/11/22 08:42 headache, itching chlorhexidine AdvReac Intermediate Unknown Verified 09/29/22 14:58 aspirin AdvReac Mild upset Verified 09/11/22 08:42 stomach Home Meds Home Medications Medication Instructions Recorded Confirmed biotin 1 mg capsule 1 mg PO QAM 06/08/18 09/29/22 glucosamine 500 1 cap PO QAM 06/08/18 09/29/22 hq-hmeufvekz-zkdptkpn comp 400 mg-D3 667 unit-C-Mn cap (Qbiokjtinfc-Qsyaomcshtm-L6(C-manganese)) lactobacillus combination no.4 3 1 cap PO QAM 06/08/18 09/29/22 billion cell capsule (Probiotic) magnesium oxide,aspartate,citr 1 cap PO QAM 06/08/18 09/29/22 (Triple Magnesium Complex) omeprazole 40 mg capsule,delayed 40 mg PO QAM 10/10/19 09/29/22 release pravastatin 40 mg tablet 40 mg PO HS 11/07/19 09/29/22 diclofenac sodium 1 % topical gel 4 g topical QID PRN Pain 11/22/20 09/29/22 (Voltaren) loratadine 10 mg tablet (Claritin) 10 mg PO DAILY 11/22/20 09/29/22 rituximab 10 mg/mL 0 mg IV DIRECTED 09/11/22 09/29/22 concentrate,intravenous (Rituxan) cetirizine 10 mg tablet 10 mg PO HS 09/29/22 09/29/22 tacrolimus 1 mg capsule, 0 mg PO DIRECTED 09/29/22 09/29/22 immediate-release Previous Rx's Medication Instructions Recorded 3-in-1 Commode #1 ea 12/18/19 3-in-1 Commode #1 ea 12/18/19 apixaban 5 mg tablet (Eliquis) 5 mg PO BID #180 tabs 05/19/22 hydrochlorothiazide 25 mg tablet 25 mg PO QAM #90 tabs 05/19/22 metoprolol succinate 25 mg 25 mg PO DAILY #90 tabs 05/19/22 tablet,extended release 24 hr duloxetine 30 mg capsule,delayed 30 mg PO DAILY #30 caps 09/11/22 release (Cymbalta) Results & Data (ED) Vital Signs Vital Signs - 24 hr 09/29/22 11:51 09/29/22 12:04 09/29/22 12:15 Temperature 36.6 C Temperature Source Temporal Artery Scan Pulse Rate 149 H 149 H Pulse Rate [Left Apical] 133 H Pulse Rhythm [Left Apical] Irregular Pulse Strength [Left Apical] Normal Respiratory Rate 16 16 Respiratory Effort / Characteristics Non-Labored Non-Labored Spontaneous Respiratory Depth Normal Normal Respiratory Pattern Blood Pressure 136/89 117/87 Blood Pressure [Right Arm] 117/87 Blood Pressure Mean 104 Blood Pressure Mean [Right Arm] 97 Pulse Oximetry 96 96 Oxygen Delivery Method Room Air Room Air Sepsis Recent Fever Within 48 Hours No Sepsis New/Unexplained Change in Mental Status No Sepsis Action Taken by Nursing No Action Required 09/29/22 12:24 09/29/22 12:41 09/29/22 12:52 Temperature Temperature Source Pulse Rate 119 H Pulse Rate [Left Apical] 126 H 116 H Pulse Rhythm [Left Apical] Irregular Regular Pulse Strength [Left Apical] Normal Normal Respiratory Rate 20 16 Respiratory Effort / Characteristics Non-Labored Spontaneous Non-Labored Spontaneous Respiratory Depth Normal Normal Respiratory Pattern Regular Blood Pressure Blood Pressure [Right Arm] 102/79 117/78 Blood Pressure Mean Blood Pressure Mean [Right Arm] 86 91 Pulse Oximetry 96 93 Oxygen Delivery Method Room Air Room Air Sepsis Recent Fever Within 48 Hours Sepsis New/Unexplained Change in Mental Status Sepsis Action Taken by Nursing 09/29/22 12:52 09/29/22 14:28 09/29/22 13:03 Temperature Temperature Source Pulse Rate 128 H Pulse Rate [Left Apical] 129 H 128 H Pulse Rhythm [Left Apical] Irregular Irregular Pulse Strength [Left Apical] Respiratory Rate 20 20 Respiratory Effort / Characteristics Non-Labored Spontaneous Non-Labored Spontaneous Respiratory Depth Normal Normal Respiratory Pattern Blood Pressure 117/78 Blood Pressure [Right Arm] 104/77 111/70 Blood Pressure Mean Blood Pressure Mean [Right Arm] 86 83 Pulse Oximetry 95 99 Oxygen Delivery Method Room Air Room Air Sepsis Recent Fever Within 48 Hours Sepsis New/Unexplained Change in Mental Status Sepsis Action Taken by Nursing 09/29/22 15:06 09/29/22 15:14 09/29/22 17:09 Temperature Temperature Source Pulse Rate Pulse Rate [Left Apical] 116 H 115 H 109 H Pulse Rhythm [Left Apical] Pulse Strength [Left Apical] Respiratory Rate 20 16 18 Respiratory Effort / Characteristics Non-Labored Spontaneous Respiratory Depth Normal Respiratory Pattern Blood Pressure Blood Pressure [Right Arm] 118/82 110/88 131/91 Blood Pressure Mean Blood Pressure Mean [Right Arm] 94 95 104 Pulse Oximetry 95 96 93 Oxygen Delivery Method Room Air Sepsis Recent Fever Within 48 Hours Sepsis New/Unexplained Change in Mental Status Sepsis Action Taken by Nursing 09/29/22 16:45 Temperature Temperature Source Pulse Rate 132 H Pulse Rate [Left Apical] Pulse Rhythm [Left Apical] Pulse Strength [Left Apical] Respiratory Rate Respiratory Effort / Characteristics Respiratory Depth Respiratory Pattern Blood Pressure Blood Pressure [Right Arm] Blood Pressure Mean Blood Pressure Mean [Right Arm] Pulse Oximetry Oxygen Delivery Method Sepsis Recent Fever Within 48 Hours Sepsis New/Unexplained Change in Mental Status Sepsis Action Taken by [facility] Medications Current Medication List: was personally reviewed by me Laboratory Data Attestation: I reviewed the patient's lab results. 09/29/22 12:05 09/29/22 12:05 Lab Results 09/29/22 09/29/22 09/29/22 Range/Units 12:05 12:05 12:05 WBC 8.27 (4.8-10.8) K/ul RBC 5.39 (4.20-5.40) M/uL Hgb 15.6 (12.0-16.0) g/dl Hct 45.8 (37.0-47.0) % MCV 85.0 (80.0-100.0) fL MCH 28.9 (25.0-34.0) pg MCHC 34.1 (32.0-36.0) g/dL RDW Std Deviation 43.6 (36.4-46.3) fL RDW Coeff of Trent 14.1 (11.5-14.5) % Plt Count 298 (130-400) K/uL MPV 9.8 (9.4-12.4) fL Immature Gran % (Auto) 0.2 % Neut % (Auto) 54.3 % Lymph % (Auto) 34.9 % [place] % (Auto) 7.6 % Eos % (Auto) 2.2 % Baso % (Auto) 0.8 % Neut # (Auto) 4.48 (1.40-6.50) K/uL Lymph # (Auto) 2.89 (1.2-3.4) K/uL [place] # (Auto) 0.63 H (0.11-0.59) K/uL Eos # (Auto) 0.18 (0-0.50) K/uL Baso # (Auto) 0.07 (0-0.2) K/uL Immature Gran # (Auto) 0.02 (0.01-0.20) K/uL PT 10.8 (9.0-12.0) Seconds INR 1.0 (0.9-1.1) APTT 28.9 (21.0-31.0) Seconds PTT Ratio 1.0 Sodium 137 (136-145) mmol/L Potassium 3.3 L (3.5-5.1) mmol/L Chloride 102 (98-107) mmol/L Carbon Dioxide 22 (21-32) mmol/L Anion Gap 13 H (3-11) BUN 18 (6-23) mg/dl Creatinine 0.92 (0.6-1.2) mg/dl Est Cr Clr Drug Dosing 59.6 ml/min Est GFR ( Amer) 70.6 ml/min Est GFR (Non-Af Amer) 60.9 ml/min BUN/Creatinine Ratio 19.6 (10-20) Glucose 194 H (70-99(Fasting)) mg/dl Calcium 9.3 (8.6-10.3) mg/dl Magnesium 2.0 (1.7-2.4) mg/dl Total Bilirubin 0.5 (0.2-1.0) mg/dl AST 18 (13-39) U/L ALT 15 (7-52) U/L Alkaline Phosphatase 86 (34-104) U/L Troponin I High Sens 5.0 (0-14) pg/ml Total Protein 7.0 (6.0-8.3) gm/dl Albumin 4.2 (3.4-5.0) gm/dl Globulin 2.8 (2.5-4.0) gm/dl Albumin/Globulin Ratio 1.5 (0.9-2) TSH (0.300-4.500) uIu/ml 09/29/22 Range/Units 12:05 WBC (4.8-10.8) K/ul RBC (4.20-5.40) M/uL Hgb (12.0-16.0) g/dl Hct (37.0-47.0) % MCV (80.0-100.0) fL MCH (25.0-34.0) pg MCHC (32.0-36.0) g/dL RDW Std Deviation (36.4-46.3) fL RDW Coeff of Trent (11.5-14.5) % Plt Count (130-400) K/uL MPV (9.4-12.4) fL Immature Gran % (Auto) % Neut % (Auto) % Lymph % (Auto) % [place] % (Auto) % Eos % (Auto) % Baso % (Auto) % Neut # (Auto) (1.40-6.50) K/uL Lymph # (Auto) (1.2-3.4) K/uL [place] # (Auto) (0.11-0.59) K/uL Eos # (Auto) (0-0.50) K/uL Baso # (Auto) (0-0.2) K/uL Immature Gran # (Auto) (0.01-0.20) K/uL PT (9.0-12.0) Seconds INR (0.9-1.1) APTT (21.0-31.0) Seconds PTT Ratio Sodium (136-145) mmol/L Potassium (3.5-5.1) mmol/L Chloride (98-107) mmol/L Carbon Dioxide (21-32) mmol/L Anion Gap (3-11) BUN (6-23) mg/dl Creatinine (0.6-1.2) mg/dl Est Cr Clr Drug Dosing ml/min Est GFR ( Amer) ml/min Est GFR (Non-Af Amer) ml/min BUN/Creatinine Ratio (10-20) Glucose (70-99(Fasting)) mg/dl Calcium (8.6-10.3) mg/dl Magnesium (1.7-2.4) mg/dl Total Bilirubin (0.2-1.0) mg/dl AST (13-39) U/L ALT (7-52) U/L Alkaline Phosphatase (34-104) U/L Troponin I High Sens (0-14) pg/ml Total Protein (6.0-8.3) gm/dl Albumin (3.4-5.0) gm/dl Globulin (2.5-4.0) gm/dl Albumin/Globulin Ratio (0.9-2) TSH 1.007 (0.300-4.500) uIu/ml Administered Medications Discontinued Medications Diltiazem HCl (Diltiazem Hcl 5 Mg/Ml 5 Ml Vial) 10 mg IV NOW STA Stop: 09/29/22 16:50 Last Admin: 09/29/22 17:04 Dose: 10 mg Documented By: MARIA ELENA Co-signed By: DEVORA Sodium Chloride (Nss) 500 mls @ 999 mls/hr IV .Q31M STA Stop: 09/29/22 12:26 Last Infusion: 09/29/22 12:30 Dose: 0 mls/hr Documented By: Admin: 09/29/22 12:05 Dose: 999 mls/hr Documented By: SATINDER Magnesium Sulfate/Dextrose (Magnesium Sulfate / D5w) 1 gm in 100 mls @ 100 mls/hr IV NOW STA Stop: 09/29/22 12:55 Last Infusion: 09/29/22 13:04 Dose: 0 mls/hr Documented By: Admin: 09/29/22 12:04 Dose: 100 mls/hr Documented By: SATINDER Sodium Chloride (Nss 1000ml) 500 mls @ 999 mls/hr IV .Q31M ONE Stop: 09/29/22 13:16 Last Infusion: 09/29/22 14:37 Dose: 0 mls/hr Documented By: Admin: 09/29/22 12:53 Dose: 500 mls/hr Documented By: MAYELA Ioversol (Optiray 320 500ml) 110 ml IV ONCE ONE Stop: 09/29/22 15:46 Last Admin: 09/29/22 15:46 Dose: 110 ml Documented By: ADRY Metoprolol Tartrate (Metoprolol Tartrate 1 Mg/Ml Vial) 5 mg IV NOW STA Stop: 09/29/22 11:57 Last Admin: 09/29/22 12:04 Dose: 5 mg Documented By: ARS Metoprolol Tartrate (Metoprolol Tartrate 1 Mg/Ml Vial) 5 mg IV NOW STA Stop: 09/29/22 12:47 Last Admin: 09/29/22 12:52 Dose: 5 mg Documented By: TW Metoprolol Tartrate (Metoprolol Tartrate 1 Mg/Ml Vial) 5 mg IV NOW STA Stop: 09/29/22 14:18 Last Admin: 09/29/22 14:28 Dose: 5 mg Documented By: TW Potassium Chloride (Potassium Chloride Crtab 20 Meq Tabcr) 20 meq PO NOW STA Stop: 09/29/22 12:46 Last Admin: 09/29/22 12:52 Dose: 20 meq Documented By: TW Imaging Data Attestation: I personally reviewed and interpreted this imaging study as follows: My Impression: 1 view chest x-ray was obtained in the emergency department. My interpretation is no free air or definite infiltrate, final report below. Radiologist's Impression: Chest X-Ray 09/29/22 11:56 XR chest 1V portable CLINICAL HISTORY: Dysrhythmia. COMPARISON STUDY: Chest radiograph March 10, 2021. FINDINGS: Lung volumes are normal. There is possible right infrahilar opacity. There is no pneumothorax or pleural effusion. Cardiomegaly is unchanged. Mediastinal contours are normal. There is no evidence for pulmonary edema. IMPRESSION: 1. Possible right infrahilar opacity. This may be artifactual however a focus of pneumonia could appear similar. Radiographic follow-up is recommended to ensure resolution. Alternatively, a chest CT could be obtained. 2. Cardiomegaly without evidence for pulmonary edema. ACT 112: Negative or not required by law. Electronically signed by: Az Ballesteros M.D. 09/29/2022 12:56 PM Chest CTA 09/29/22 15:37 CT angio chest PE protocol CT DOSE: 832.25 mGy.cm HISTORY: 76 years-old Female with PE. Acute shortness of breath TECHNIQUE: Multiple CTA images of the chest were obtained after the intravenous administration of 110 ml Optiray. Coronal and sagittal MIPS were obtained from the axial data set and were submitted for review. All measurements were obtained according to NASCET criteria. A dose lowering technique was utilized adhering to the principles of ALARA. COMPARISON: Chest radiograph of same day FINDINGS: CTA: [id number] cardiomegaly. No pericardial effusion. Unremarkable thoracic aorta. No pulmonary emboli identified. CT CHEST: Heterogeneity of the thyroid. No lymphadenopathy identified. No pneumothorax, pleural effusion, airspace consolidation or overt pulmonary edema. Bilateral ground glass densities suggest atelectasis. There are no suspicious pulmonary nodule or mass is identified. No right infrahilar opacity identified to correlate with the radiographic finding. There are a few cysts noted within the liver measuring up to 4.2 cm. Hyperdense material is noted within the esophagus. Unremarkable soft tissues. No acute fracture. IMPRESSION: 1. Cardiomegaly without pulmonary emboli identified. 2. No pleural effusion or lymphadenopathy 3. Bilateral groundglass opacities suggestive of atelectasis. ACT 112: Negative or not required by law. The above report was generated using voice recognition software. It may contain grammatical, syntax or spelling errors. Electronically signed by: Negrito Barber M.D. 09/29/2022 4:17 PM Discharge Plan Visit Data Chief Complaint: Tachycardia Stated Complaint: HEART RATE 144 ED Provider: Travis Mathur Discharge Problem: Atrial fibrillation with RVR, Hypokalemia Patient Disposition: Being Evaluated by Hospitalist Forms Stand Alone Forms: [facility] Prescriptions Prescriptions: No Action Rituxan 10 mg/mL concentrate 0 mg IV DIRECTED Rx Instructions: Auto immune flare up duloxetine [Cymbalta] 30 mg capsule,delayed release(DR/EC) 30 mg PO DAILY Qty: 30 3RF (DME) 3-in-1 [facility] See Rx Instructions .MEDSUPPLY Qty: 1 0RF Rx Instructions: As directed (DME) 3-in-1 [facility] See Rx Instructions .MEDSUPPLY Qty: 1 0RF Rx Instructions: As directed Eliquis 5 mg tablet 5 mg PO BID Qty: 180 3RF hydrochlorothiazide 25 mg tablet 25 mg PO QAM Qty: 90 3RF metoprolol succinate 25 mg tablet extended release 24 hr 25 mg PO DAILY Qty: 90 3RF diclofenac sodium [Voltaren] 1 % gel 4 g topical QID PRN (Reason: Pain) Rx Instructions: apply to single knee, ankle, foot; for foot includes sole/toes/top of foot loratadine [Claritin] 10 mg tablet 10 mg PO DAILY Vroofuctubd-Zalnrr-S0 (C-leticia) 500-400-667 mg-mg-unit Capsule 1 cap PO QAM Probiotic 3 billion cell Capsule 1 cap PO QAM Triple Magnesium Complex 400 mg Capsule 1 cap PO QAM biotin 1 mg Capsule 1 mg PO QAM omeprazole 40 mg capsule,delayed release(DR/EC) 40 mg PO QAM pravastatin 40 mg Tablet 40 mg PO HS cetirizine 10 mg tablet 10 mg PO HS Rx Instructions: 10 mg PO 1 TABLET AT BEDTIME; tacrolimus 1 mg capsule 0 mg PO DIRECTED Referrals Referrals: Everton Sanchez DO [Primary Care Provider] -
[2022-09-29 12:23] LABS: Basophils # (auto) 0.07 K/uL (0-0.2); Basophils % (auto) 0.8 %; Eosinophils # (auto) 0.18 K/uL (0-0.50); Eosinophils % (auto) 2.2 %; Hematocrit (blood only) 45.8 % (37.0-47.0); Hemoglobin 15.6 g/dl (12.0-16.0); Immature Granulocytes # (auto) 0.02 K/uL (0.01-0.20); Immature Granulocytes % (auto) 0.2 %; Lymphocytes # (auto) 2.89 K/uL (1.2-3.4); Lymphocytes % (auto) 34.9 %; Mean Corpuscular Hemoglobin 28.9 pg (25.0-34.0); Mean Corpuscular Hgb Conc 34.1 g/dL (32.0-36.0); Mean Platelet Volume 9.8 fL (9.4-12.4); Monocytes # (auto) 0.63 K/uL (0.11-0.59); Monocytes % (auto) 7.6 %; Neutrophils # (auto) 4.48 K/uL (1.40-6.50); Neutrophils % (auto) 54.3 %; Platelet Count 298 K/uL (130-400); RDW Coefficient of Variation 14.1 % (11.5-14.5); RDW Standard Deviation 43.6 fL (36.4-46.3); Red Blood Count 5.39 M/uL (4.20-5.40); White Blood Count 8.27 K/ul (4.8-10.8)
[2022-09-29 12:40] LABS: Albumin Globulin Ratio 1.5 (0.9-2); Albumin Level 4.2 gm/dl (3.4-5.0); BUN Creatinine Ratio 19.6 (10-20); Bilirubin,Total 0.5 mg/dl (0.2-1.0); Calcium 9.3 mg/dl (8.6-10.3); Creatinine Clr Calc Pharmacy 59.6 ml/min; Est GFR (African American) 70.6 ml/min; Est GFR (Non-African American) 60.9 ml/min; Globulin 2.8 gm/dl (2.5-4.0); Potassium 3.3 mmol/L (3.5-5.1)
[2022-09-29] MEDS ORDERED: POTASSIUM CHLORIDE CRTAB 20 MEQ TABCR PO STA ×2 (12:45→18:01)
[2022-09-29] MEDS ORDERED: SODIUM CHLORIDE 0.9% 1000ML 500 ML IV ONE (12:46)
[2022-09-29 12:53] LABS: Partial Thromboplastin Time 28.9 Seconds (21.0-31.0); Prothrombin Time 10.8 Seconds (9.0-12.0)
--- NOTE | 2022-09-29 12:58 | XRay Report ---
XR chest 1V portable CLINICAL HISTORY: Dysrhythmia. COMPARISON STUDY: Chest radiograph March 10, 2021. FINDINGS: Lung volumes are normal. There is possible right infrahilar opacity. There is no pneumothor ax or pleural effusion. Cardiomegaly is unchanged. Mediastinal contours are normal. There is no evide nce for pulmonary edema. IMPRESSION: 1. Possible right infrahilar opacity. This may be artifactual however a focus of pneumonia could appe ar similar. Radiographic follow-up is recommended to ensure resolution. Alternatively, a chest CT cou ld be obtained. 2. Cardiomegaly without evidence for pulmonary edema. ACT 112: Negative or not required by law. Electronically signed by: Az Ballesteros M.D. 09/29/2022 12:56 PM
[2022-09-29] MEDS ORDERED: OPTIRAY 320 500ml IV ONE (15:45)
--- NOTE | 2022-09-29 16:19 | CT Scan Report ---
CT angio chest PE protocol CT DOSE: 832.25 mGy.cm HISTORY: 76 years-old Female with PE. Acute shortness of breath TECHNIQUE: Multiple CTA images of the chest were obtained after the intravenous administration of 110 ml Optiray. Coronal and sagittal MIPS were obtained from the axial data set and were submitted for review. All measurements were obtained according to NASCET criteria. A dose lowering technique was u tilized adhering to the principles of ALARA. COMPARISON: Chest radiograph of same day FINDINGS: CTA: [id number] cardiomegaly. No pericardial effusion. Unremarkable thoracic aorta. No pulmonary emb andrew identified. CT CHEST: Heterogeneity of the thyroid. No lymphadenopathy identified. No pneumothorax, pleural effusion, airsp alice consolidation or overt pulmonary edema. Bilateral ground glass densities suggest atelectasis. The re are no suspicious pulmonary nodule or mass is identified. No right infrahilar opacity identified t o correlate with the radiographic finding. There are a few cysts noted within the liver measuring up to 4.2 cm. Hyperdense material is noted wit hin the esophagus. Unremarkable soft tissues. No acute fracture. IMPRESSION: 1. Cardiomegaly without pulmonary emboli identified. 2. No pleural effusion or lymphadenopathy 3. Bilateral groundglass opacities suggestive of atelectasis. ACT 112: Negative or not required by law. The above report was generated using voice recognition software. It may contain grammatical, syntax o r spelling errors. Electronically signed by: Negrito Barber M.D. 09/29/2022 4:17 PM
[2022-09-29] MEDS ORDERED: dilTIAZem HCl 5 MG/ML 5 ML VIAL IV STA (16:49)
[2022-09-29] MEDS ORDERED: STAT IV Infusion **Titration per Protocol STA (18:17)
[2022-09-29] MEDS ORDERED: dilTIAZem HCL 125 MG in DEXTROSE 5% 100 ML IV SCH (18:30)
--- NOTE | 2022-09-29 18:34 | Electrocardiogram Report ---
Test Reason : Blood Pressure : / mmHG Vent. Rate : 147 BPM Atrial Rate : 147 BPM P-R Int : 086 ms QRS Dur : 088 ms QT Int : 308 ms P-R-T Axes : 101 -10 018 degrees QTc Int : 482 ms Ectopic atrial tachycardia vs atrial flutter Poor R wave progression, consider anterior OH vs. lead placement vs. LVH Nonspecific ST abnormality Abnormal ECG When compared with ECG of 22-OCT-2020 20:48, Vent. rate has increased BY 49 BPM Confirmed by Jalen Christensen ([id number]) on 09/29/2022 6:34:40 PM Referred By: Confirmed By:Daniel Christensen
--- NOTE | 2022-09-29 18:36 | History & Physical Report ---
Date of Service September 29, 2022 Assessment & Plan (1) Atrial fibrillation with RVR: Plan: Admit to telemetry Patient presenting from home for evaluation of palpitations. History of paroxysmal atrial fibrillation anticoagulant on Eliquis and rate typically controlled with metoprolol succinate 25 mg daily. Also remote history of atrial tachycardia s/p ablation. In the ED, found to be in atrial fibrillation with RVR with rates in the 140s. Received metoprolol 5 mg IV x 3 with minimal improvement in heart rate. Patient then received diltiazem 10 mg IV and heart rates have been in the 100s-110s. She reports ongoing mild palpitations. K+ 3.3, replaced HS trop x 2 negtive, TSH WNL No signs of infection, patient denies missed doses of medications. Case discussed with Dr. Christensen Start diltiazem infusion. Continue home dose metoprolol succinate 25 mg daily. Echo NPO after midnight (2) Hypokalemia: Plan: K+ 3.3, replaced Mg+ 2.0 Patient on HCTZ, likely needs maintenance potassium supplement (3) Hypertension: Plan: BP controlled Will hold home dose HCTZ for now due to mild hypokalemia, afib RVR, and starting diltiazem drip (4) Hyperglycemia: Plan: Glucose 194 Hgb A1c 6.5 08/2022 Patient states that she discussed starting diabetes medications with her PCP however is trialing diet and exercise. 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 Has received rituximab infusions in the past. Follows with dermatology at [facility] DVT PROPHYLAXIS On Eliquis Patient seen in collaboration with Dr. Payton. I spent a total of 75 minutes coordinating, documenting, and providing care for this patient excluding time spent in the performance of separately billed services. This included personally reviewing all current laboratories and imaging studies, medication reconciliation, outpatient chart review, and discussion with specialists. History of Present Illness Chief Complaint: Palpitations Primary Care Provider: Everton Sanchez DO 76-year-old female with PMH hyperlipidemia, paroxysmal atrial fibrillation on Eliquis, history of atrial tachycardia s/p ablation, HTN, GERD, pemphigus vulgaris of gingival mucosa, cicatricial pemphigoid, and other problems listed below who presents to the ED for evaluation of palpitations. History obtained from the patient and review of outpatient PCP and cardiology records. Patient reports she exercised this morning per her usual routine and then swept out her garage. She reports that she started making breakfast and developed feelings of anxiety and palpitations. She reports associated shortness of breath and lightheadedness. Denies chest pain. Patient states that her fitness watch said that her heart rate was in the 150s. She then presented to the ED for further evaluation. Patient reports she otherwise been feeling well recently. Denies any other recent illnesses, fevers, chills. No missed doses of medications. Denies abdominal pain, nausea, vomiting, diarrhea. No urinary symptoms. In the ED, patient was found to be in A-fib with RVR with rates in the 140s. She received metoprolol 5 mg IV x 3 with minimal improvement in heart rate. Patient then received diltiazem 10 mg IV and heart rates have been in the 100s-110s. She reports ongoing mild palpitations. Labs show K+ 3.3 and she received potassium replacement. Allergies Allergy/AdvReac Type Severity Reaction Status Date / Time IgA less than or equal to 50 Allergy Rash, Verified 09/11/22 08:42 mcg/mL headache, [From Privigen] itching immune globulin,gamma (IgG) Allergy Rash, Verified 09/11/22 08:42 human headache, [From Privigen] itching proline [From Privigen] Allergy Rash, Verified 09/11/22 08:42 headache, itching chlorhexidine AdvReac Intermediate Unknown Verified 09/29/22 14:58 aspirin AdvReac Mild upset Verified 09/11/22 08:42 stomach Home Medications Medication Instructions Recorded Confirmed Type lactobacillus combination no.4 3 1 cap PO QAM 06/08/18 09/29/22 History billion cell capsule (Probiotic) omeprazole 40 mg capsule,delayed 40 mg PO QAM 10/10/19 09/29/22 History release pravastatin 40 mg tablet 40 mg PO HS 11/07/19 09/29/22 History 3-in-1 Commode #1 ea 12/18/19 09/29/22 Rx 3-in-1 Commode #1 ea 12/18/19 09/29/22 Rx diclofenac sodium 1 % topical gel 4 g topical QID PRN Pain 11/22/20 09/29/22 History (Voltaren) apixaban 5 mg tablet (Eliquis) 5 mg PO BID #180 tabs 05/19/22 09/29/22 Rx hydrochlorothiazide 25 mg tablet 25 mg PO QAM #90 tabs 05/19/22 09/29/22 Rx metoprolol succinate 25 mg 25 mg PO DAILY #90 tabs 05/19/22 09/29/22 Rx tablet,extended release 24 hr rituximab 10 mg/mL 0 mg IV DIRECTED 09/11/22 09/29/22 History concentrate,intravenous (Rituxan) biotin 10 mg tablet 10 mg PO DAILY 09/29/22 09/29/22 History calcium carbonate 600 mg-vitamin 1 tab PO DAILY 09/29/22 09/29/22 History D3 5 mcg (200 unit) tablet cetirizine 10 mg tablet 10 mg PO HS 09/29/22 09/29/22 History duloxetine 30 mg capsule,delayed 30 mg PO HS 09/29/22 09/29/22 History release (Cymbalta) magnesium oxide 500 mg tablet 500 mg PO DAILY 09/29/22 09/29/22 History niacin 500 mg tablet 1,000 mg PO DAILY 09/29/22 09/29/22 History tacrolimus 1 mg capsule, 0 mg PO DIRECTED 09/29/22 09/29/22 History immediate-release Past Med/Surg History Medical History Acquired deviated nasal septum Anxiety no meds Benign paroxysmal positional vertigo of left ear 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 Rubalcava[place] [facility] [place] all blistering improving as of 11/12 PAT visit Eustachian tube dysfunction GERD (gastroesophageal reflux disease) Hyperlipidemia Hypertension IBS (irritable bowel syndrome) Liver cyst monitoring Lumbar spondylosis Neuropathy Osteoarthritis Paroxysmal atrial fibrillation Pemphigus vulgaris of gingival mucosa PVC's (premature ventricular contractions) hx Rheumatoid arthritis no meds Squamous cell carcinoma s/p excision (knee, chest, r/l arms) Thyroid nodule Surgical History History of biopsy of bladder benign History of bowel resection benign tumor, 3 ft removed History of cardiac radiofrequency ablation History of cataract surgery History of colonoscopy History of dilatation and curettage History of esophagogastroduodenoscopy (EGD) History of gynecologic surgery vaginal cyst removal History of surgery skin cancer removed off both hands History of total knee replacement S/P thyroid biopsy nodules on thyroid, benign Status post medial meniscus repair left knee Family History Mother Hearing loss Allergies Asthma Heart disease Hypertension Father Hearing loss Allergies Heart disease Hypertension Brother Cancer Other No family history of adverse response to anesthesia No family history of bleeding disorder Social History Smoking Status: Never smoker Second Hand Exposure: No; Do You Dip or Chew Tobacco: No; Hx Alcohol Use: Yes Alcohol type: wine and hard liquor Alcohol Intake Frequency Comment: Social Hx Substance Use: No Preferred Language: Korean Communication Ability: Effective Visual Impairment: No Limitations Polo Coach Required: No Beliefs That Will Affect Care: None marital status: Current Living Situation: Spouse current occupational status: retired How many Children do You have: 3 Feels Safe at Home: Yes Assistive Devices: Walker Review of Systems Review of Systems: ROS per HPI, all other systems reviewed and negative Physical Exam Physical Exam: please refer to Dr. Payton's addendum for physical exam Results & Data Results & Data Vital Signs (Past 12 Hours) Vital Signs Temp Pulse Pulse Resp BP BP Pulse Ox 09/29/22 16:45 132 H 09/29/22 17:09 109 H 18 131/91 93 09/29/22 15:14 115 H 16 110/88 96 09/29/22 15:06 116 H 20 118/82 95 09/29/22 13:03 128 H 20 111/70 99 09/29/22 14:28 129 H 20 104/77 95 09/29/22 12:52 128 H 117/78 09/29/22 12:52 119 H 09/29/22 12:41 116 H 16 117/78 93 09/29/22 12:24 126 H 20 102/79 96 09/29/22 12:15 133 H 16 117/87 96 09/29/22 12:04 149 H 117/87 09/29/22 11:51 36.6 C 149 H 16 136/89 96 O2 Del Method 09/29/22 16:45 09/29/22 17:09 09/29/22 15:14 09/29/22 15:06 Room Air 09/29/22 13:03 Room Air 09/29/22 14:28 Room Air 09/29/22 12:52 09/29/22 12:52 09/29/22 12:41 Room Air 09/29/22 12:24 Room Air 09/29/22 12:15 Room Air 09/29/22 12:04 09/29/22 11:51 Room Air Laboratory Results Short CBC 09/29/22 Range/Units 12:05 WBC 8.27 (4.8-10.8) K/ul Hgb 15.6 (12.0-16.0) g/dl Hct 45.8 (37.0-47.0) % Plt Count 298 (130-400) K/uL BMP 09/29/22 12:05 Sodium 137 Potassium 3.3 L Chloride 102 Carbon Dioxide 22 BUN 18 Creatinine 0.92 Glucose 194 H Calcium 9.3 Liver Function 09/29/22 Range/Units 12:05 Total Bilirubin 0.5 (0.2-1.0) mg/dl AST 18 (13-39) U/L ALT 15 (7-52) U/L Alkaline Phosphatase 86 (34-104) U/L Albumin 4.2 (3.4-5.0) gm/dl Diagnostic Findings Chest X-Ray 09/29/22 11:56 XR chest 1V portable CLINICAL HISTORY: Dysrhythmia. COMPARISON STUDY: Chest radiograph March 10, 2021. FINDINGS: Lung volumes are normal. There is possible right infrahilar opacity. There is no pneumothorax or pleural effusion. Cardiomegaly is unchanged. Mediastinal contours are normal. There is no evidence for pulmonary edema. IMPRESSION: 1. Possible right infrahilar opacity. This may be artifactual however a focus of pneumonia could appear similar. Radiographic follow-up is recommended to ensure resolution. Alternatively, a chest CT could be obtained. 2. Cardiomegaly without evidence for pulmonary edema. ACT 112: Negative or not required by law. Electronically signed by: Az Ballesteros M.D. 09/29/2022 12:56 PM Chest CTA 09/29/22 15:37 CT angio chest PE protocol CT DOSE: 832.25 mGy.cm HISTORY: 76 years-old Female with PE. Acute shortness of breath TECHNIQUE: Multiple CTA images of the chest were obtained after the intravenous administration of 110 ml Optiray. Coronal and sagittal MIPS were obtained from the axial data set and were submitted for review. All measurements were obtained according to NASCET criteria. A dose lowering technique was utilized adhering to the principles of ALARA. COMPARISON: Chest radiograph of same day FINDINGS: CTA: [id number] cardiomegaly. No pericardial effusion. Unremarkable thoracic aorta. No pulmonary emboli identified. CT CHEST: Heterogeneity of the thyroid. No lymphadenopathy identified. No pneumothorax, pleural effusion, airspace consolidation or overt pulmonary edema. Bilateral ground glass densities suggest atelectasis. There are no suspicious pulmonary nodule or mass is identified. No right infrahilar opacity identified to correlate with the radiographic finding. There are a few cysts noted within the liver measuring up to 4.2 cm. Hyperdense material is noted within the esophagus. Unremarkable soft tissues. No acute fracture. IMPRESSION: 1. Cardiomegaly without pulmonary emboli identified. 2. No pleural effusion or lymphadenopathy 3. Bilateral groundglass opacities suggestive of atelectasis. ACT 112: Negative or not required by law. The above report was generated using voice recognition software. It may contain grammatical, syntax or spelling errors. Electronically signed by: Negrito Barber M.D. 09/29/2022 4:17 PM Code Status & VTE Plan VTE Prophylaxis Plan VTE Prophylaxis will be ordered: No Reason for no VTE drug order: Contraindicated Supervising Physician Co-Signing Physician Notes History and exam performed by me notable for 76 year old woman with pAF, pemphigus vulgaris of gingival mucosa, cicatricial pemphigoid, atrial tach s/p ablation who presented with palpitation after working out earlier this morning. On exam, General: Well hydrated, No acute distress Eyes: PERRL, conjunctivae normal, not pale, anicteric sclerae, EOM intact bilaterally ENMT: External ear and nose normal, oropharynx normal Respiratory: Normal respiratory effort, no respiratory distress, lungs clear to auscultation, no crackles and no wheezes Cardiovascular: Irregularly irregular, tachycardic Gastrointestinal (Abdomen): Abdomen is not distended, soft, non-tender to palpation, no guarding, no palpable hepatosplenomegaly, normal bowel sounds Musculoskeletal: No pedal edema Neurologic: Alert and oriented x 3, No focal weakness, sensation grossly intact Psychiatric: Euthymic affect Atrial fibrillation with rapid ventricular rate Got iv lopressor in ER HR currently 100-110s MNMG Cardiology consulted Started on cardizem drip NPO PMN Other plans as detailed by Irina QUIÑONEZ (3) Hypertension Hypertension type: essential hypertension Qualified Code(s): I10 - Essential (primary) hypertension (5) Hyperlipidemia Hyperlipidemia type: unspecified Qualified Code(s): E78.5 - Hyperlipidemia, unspecified (6) GERD (gastroesophageal reflux disease) Esophagitis presence: esophagitis presence not specified Qualified Code(s): K21.9 - Gastro-esophageal reflux disease without esophagitis
--- NOTE | 2022-09-29 18:36 | Electrocardiogram Report ---
Test Reason : Blood Pressure : / mmHG Vent. Rate : 107 BPM Atrial Rate : 000 BPM P-R Int : 000 ms QRS Dur : 102 ms QT Int : 352 ms P-R-T Axes : 000 -11 020 degrees QTc Int : 469 ms Atrial fibrillation with rapid ventricular response Nonspecific ST abnormality Abnormal ECG When compared with ECG of 29-SEP-2022 11:58, (unconfirmed) Atrial fibrillation has replaced Sinus rhythm Nonspecific T wave abnormality, worse in Anterior leads Confirmed by Jalen Christensen ([id number]) on 09/29/2022 6:35:40 PM Referred By: REFERRED SELF Confirmed By:Daniel Christensen
[2022-09-29] MEDS ORDERED: GLUCOSE 10 TAB/TUBE PO PRN (20:30)
[2022-09-29] MEDS ORDERED: GLUCAGON FOR INJ 1 MG VIAL SQ PRN (20:30)
[2022-09-29] MEDS ORDERED: ACETAMINOPHEN 325 MG TAB PO PRN (20:30)
[2022-09-29] MEDS ORDERED: DEXTROSE 50% 50 ML SYRINGE IV PRN (20:30)
[2022-09-29] MEDS ORDERED: CARBOHYDRATES FOR HYPOGLYCEMIA PO PRN (20:30)
[2022-09-29] MEDS ORDERED: GLUCOSE 40% GEL 15 GM TUBE PO PRN (20:30)
[2022-09-29] MEDS ORDERED: PRAVASTATIN SOD 40 MG TAB PO SCH (21:00)
[2022-09-29] MEDS ORDERED: DULoxetine HCL 30 MG CAP PO SCH (21:00)
[2022-09-29] MEDS: APIXABAN 5 MG TABLET PO SCH (21:38)
[2022-09-29] MEDS: INSULIN ASPART PER UNIT CHARGE SC SCH (21:41)
[2022-09-30 06:33] LABS: Hematocrit (blood only) 43.2 % (37.0-47.0); Hemoglobin 14.2 g/dl (12.0-16.0); Mean Corpuscular Hemoglobin 28.9 pg (25.0-34.0); Mean Corpuscular Hgb Conc 32.9 g/dL (32.0-36.0); Mean Platelet Volume 9.7 fL (9.4-12.4); Platelet Count 276 K/uL (130-400); RDW Coefficient of Variation 14.4 % (11.5-14.5); RDW Standard Deviation 45.8 fL (36.4-46.3); Red Blood Count 4.91 M/uL (4.20-5.40); White Blood Count 6.28 K/ul (4.8-10.8)
[2022-09-30 07:02] LABS: BUN Creatinine Ratio 17.4 (10-20); Calcium 8.7 mg/dl (8.6-10.3); Creatinine Clr Calc Pharmacy 63.5 ml/min; Est GFR (African American) 76.6 ml/min; Est GFR (Non-African American) 66.1 ml/min; Magnesium 2.3 mg/dl (1.7-2.4); Potassium 4.1 mmol/L (3.5-5.1)
[2022-09-30] MEDS: INSULIN ASPART PER UNIT CHARGE SC SCH ×2 (08:18→11:55)
[2022-09-30] MEDS ORDERED: PANTOprazole 40 MG TAB PO SCH (09:00)
[2022-09-30] MEDS ORDERED: METOPROLOL SUCC 25MG EXT REL TAB PO SCH (09:00)
[2022-09-30] MEDS: APIXABAN 5 MG TABLET PO SCH (09:27)
--- NOTE | 2022-09-30 10:51 | Cardiology Consultation ---
Date of Consultation September 30, 2022 Assessment & Plan (1) Paroxysmal atrial fibrillation: Plan 1. Atrial fibrillation: She certainly has some EKGs consistent with atrial fibrillation. However, additional EKGs are more suggestive of an ectopic atrial tachycardia or atypical atrial flutter. This presentation is very similar to and 2018. She has done very well since that time without any documented high heart rates or recurrent sustained SVT. As such, I do not think we need to change her therapy at this time. Perhaps her pattern will chains and she will have more frequent episodes at which point more aggressive therapy would be indicated. Based on her preserved LV systolic function and absence of significant LVH I think she would be a reasonable candidate for pill in the pocket approach with flecainide. I will prescribe her 300 mg to take orally at the onset of another episode. History of Present Illness Reason for Consultation: Tachycardia Requesting Physician: Kelin Attending Physician: Zechariah Miller MD History of Present Illness The patient is a 76-year-old woman with a well-established history of paroxysmal atrial tachycardia and atrial fibrillation presented to the emergency room yesterday with symptoms of tachycardia. It seems that the patient was engaged in her usual routine when she noticed the development of palpitations and an elevated heart rate. She did some deep breathing and drink some water in the hopes that it would terminate. However, based on the persistent nature of the tachycardia and higher heart rates she she felt compelled to go to the emergency room for evaluation. She may have had some mild dizziness and dyspnea, but no chest pain associated with arrhythmia. Symptoms were not severe. In the emergency room she was noted to have a significant tachycardia and she was administered additional doses beta-blockade without affect. Diltiazem was also administered and infusion was started. The patient was admitted for observation. She states that she has generally been feeling well. She may notice occasional episodes of palpitations that are quite fleeting in nature. These tend to occur at nighttime and generally resolved with change in position. No extended episodes. No documented high heart rates. She has been exercising regularly and did not endorse symptoms of limiting dyspnea, exertional chest pain, dizziness or lightheadedness. Allergies Allergy/AdvReac Type Severity Reaction Status Date / Time IgA less than or equal to 50 Allergy Rash, Verified 09/11/22 08:42 mcg/mL headache, [From Privigen] itching immune globulin,gamma (IgG) Allergy Rash, Verified 09/11/22 08:42 human headache, [From Privigen] itching proline [From Privigen] Allergy Rash, Verified 09/11/22 08:42 headache, itching chlorhexidine AdvReac Intermediate Unknown Verified 09/29/22 14:58 aspirin AdvReac Mild upset Verified 09/11/22 08:42 stomach Home Medications Medication Instructions Recorded Confirmed Type lactobacillus combination no.4 3 1 cap PO QAM 06/08/18 09/29/22 History billion cell capsule (Probiotic) omeprazole 40 mg capsule,delayed 40 mg PO QAM 10/10/19 09/29/22 History release pravastatin 40 mg tablet 40 mg PO HS 11/07/19 09/29/22 History 3-in-1 Commode #1 ea 12/18/19 09/29/22 Rx 3-in-1 Commode #1 ea 12/18/19 09/29/22 Rx diclofenac sodium 1 % topical gel 4 g topical QID PRN Pain 11/22/20 09/29/22 History (Voltaren) apixaban 5 mg tablet (Eliquis) 5 mg PO BID #180 tabs 05/19/22 09/29/22 Rx hydrochlorothiazide 25 mg tablet 25 mg PO QAM #90 tabs 05/19/22 09/29/22 Rx metoprolol succinate 25 mg 25 mg PO DAILY #90 tabs 05/19/22 09/29/22 Rx tablet,extended release 24 hr rituximab 10 mg/mL 0 mg IV DIRECTED 09/11/22 09/29/22 History concentrate,intravenous (Rituxan) biotin 10 mg tablet 10 mg PO DAILY 09/29/22 09/29/22 History calcium carbonate 600 mg-vitamin 1 tab PO DAILY 09/29/22 09/29/22 History D3 5 mcg (200 unit) tablet cetirizine 10 mg tablet 10 mg PO HS 09/29/22 09/29/22 History duloxetine 30 mg capsule,delayed 30 mg PO HS 09/29/22 09/29/22 History release (Cymbalta) magnesium oxide 500 mg tablet 500 mg PO DAILY 09/29/22 09/29/22 History niacin 500 mg tablet 1,000 mg PO DAILY 09/29/22 09/29/22 History tacrolimus 1 mg capsule, 0 mg PO DIRECTED 09/29/22 09/29/22 History immediate-release Patient History Medical History Acquired deviated nasal septum Anxiety no meds Benign paroxysmal positional vertigo of left ear 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 Rubalcava/Dr. Hurtado- [facility] [place] all blistering improving as of 11/12 PAT visit Eustachian tube dysfunction GERD (gastroesophageal reflux disease) Hyperlipidemia Hypertension IBS (irritable bowel syndrome) Liver cyst monitoring Lumbar spondylosis Neuropathy Osteoarthritis Paroxysmal atrial fibrillation Pemphigus vulgaris of gingival mucosa PVC's (premature ventricular contractions) hx Rheumatoid arthritis no meds Squamous cell carcinoma s/p excision (knee, chest, r/l arms) Thyroid nodule Surgical History History of biopsy of bladder benign History of bowel resection benign tumor, 3 ft removed History of cardiac radiofrequency ablation History of cataract surgery History of colonoscopy History of dilatation and curettage History of esophagogastroduodenoscopy (EGD) History of gynecologic surgery vaginal cyst removal History of surgery skin cancer removed off both hands History of total knee replacement S/P thyroid biopsy nodules on thyroid, benign Status post medial meniscus repair left knee Family History Mother Hearing loss Allergies Asthma Heart disease Hypertension Father Hearing loss Allergies Heart disease Hypertension Brother Cancer Other No family history of adverse response to anesthesia No family history of bleeding disorder Social History Smoking Status: Never smoker Second Hand Exposure: No; Do You Dip or Chew Tobacco: No; Hx Alcohol Use: Yes Alcohol type: wine Alcohol Intake Frequency Comment: Social Hx Substance Use: No Preferred Language: Pashto Communication Ability: Effective Visual Impairment: No Limitations Dot Compliance Specialist Required: No Beliefs That Will Affect Care: None marital status: Current Living Situation: Spouse current occupational status: retired How many Children do You have: 3 Feels Safe at Home: Yes Assistive Devices: None Review of Systems Review of Systems: Per HPI. She has bullous pemphigoid and has been on some immune suppressive therapy. Currently quiescent. Some peripheral neuropathy Physical Exam Physical Exam: She is alert and oriented x3. Mood affect appear normal. She answered all questions appropriately. HEENT: Sclerae are anicteric. Pupils are equal and reactive to light and accommodation. Extraocular movements were intact. Neuro: Cranial nerves intact Lungs: Lungs are clear to auscultation bilaterally. There are no rales wheezes or rhonchi. She has normal respiratory effort without use of accessory muscles. There is normal pulmonary excursion. Cardiac: The rhythm was regular. S1 and S2 were normal. There are no murmurs on examination. The PMI was not markedly displaced on palpation. Extremities: Patient has bilateral radial pulses that are equal in intensity. There is no evidence cyanosis or clubbing. There was no evidence of significant peripheral edema bilaterally. Skin: There are no rashes noted on examination today. Results & Data Vital Signs (Past 12 Hours) Vital Signs Temp Pulse Pulse Resp BP Pulse Ox O2 Del Method 09/30/22 08:00 71 09/30/22 09:15 76 130/85 09/30/22 07:38 36.7 C 77 18 118/72 96 Room Air 09/30/22 03:09 36.7 C 78 18 118/69 97 Room Air 09/29/22 23:11 36.6 C 71 18 119/69 98 Room Air Laboratory Results Abnormal Lab Results 09/29/22 09/29/22 09/29/22 12:05 12:05 12:05 WBC 8.27 RBC 5.39 Hgb 15.6 Hct 45.8 MCV 85.0 MCH 28.9 MCHC 34.1 RDW Std Deviation 43.6 RDW Coeff of [place] 14.1 Plt Count 298 MPV 9.8 Immature Gran % (Auto) 0.2 Neut % (Auto) 54.3 Lymph % (Auto) 34.9 [place] % (Auto) 7.6 Eos % (Auto) 2.2 Baso % (Auto) 0.8 Neut # (Auto) 4.48 Lymph # (Auto) 2.89 [place] # (Auto) 0.63 H Eos # (Auto) 0.18 Baso # (Auto) 0.07 Immature Gran # (Auto) 0.02 PT 10.8 INR 1.0 APTT 28.9 PTT Ratio 1.0 Sodium 137 Potassium 3.3 L Chloride 102 Carbon Dioxide 22 Anion Gap 13 H BUN 18 Creatinine 0.92 Est Cr Clr Drug Dosing 59.6 Est GFR ( Amer) 70.6 Est GFR (Non-Af Amer) 60.9 BUN/Creatinine Ratio 19.6 Glucose 194 H POC Glucose Calcium 9.3 Magnesium 2.0 Total Bilirubin 0.5 AST 18 ALT 15 Alkaline Phosphatase 86 Troponin I High Sens 5.0 Total Protein 7.0 Albumin 4.2 Globulin 2.8 Albumin/Globulin Ratio 1.5 TSH SARS-CoV-2, RNA, NAAT 09/29/22 09/29/22 09/29/22 12:05 17:46 18:14 WBC RBC Hgb Hct MCV MCH MCHC RDW Std Deviation RDW Coeff of [place] Plt Count MPV Immature Gran % (Auto) Neut % (Auto) Lymph % (Auto) [place] % (Auto) Eos % (Auto) Baso % (Auto) Neut # (Auto) Lymph # (Auto) [place] # (Auto) Eos # (Auto) Baso # (Auto) Immature Gran # (Auto) PT INR APTT PTT Ratio Sodium Potassium Chloride Carbon Dioxide Anion Gap BUN Creatinine Est Cr Clr Drug Dosing Est GFR ( Amer) Est GFR (Non-Af Amer) BUN/Creatinine Ratio Glucose POC Glucose Calcium Magnesium Total Bilirubin AST ALT Alkaline Phosphatase Troponin I High Sens 8.8 Total Protein Albumin Globulin Albumin/Globulin Ratio TSH 1.007 SARS-CoV-2, RNA, NAAT NEGATIVE 09/29/22 09/30/22 09/30/22 21:41 00:28 05:52 WBC 6.28 RBC 4.91 Hgb 14.2 Hct 43.2 MCV 88.0 MCH 28.9 MCHC 32.9 RDW Std Deviation 45.8 RDW Coeff of [place] 14.4 Plt Count 276 MPV 9.7 Immature Gran % (Auto) Neut % (Auto) Lymph % (Auto) [place] % (Auto) Eos % (Auto) Baso % (Auto) Neut # (Auto) Lymph # (Auto) [place] # (Auto) Eos # (Auto) Baso # (Auto) Immature Gran # (Auto) PT INR APTT PTT Ratio Sodium Potassium Chloride Carbon Dioxide Anion Gap BUN Creatinine Est Cr Clr Drug Dosing Est GFR ( Amer) Est GFR (Non-Af Amer) BUN/Creatinine Ratio Glucose POC Glucose 134 H Calcium Magnesium Total Bilirubin AST ALT Alkaline Phosphatase Troponin I High Sens 8.1 Total Protein Albumin Globulin Albumin/Globulin Ratio TSH SARS-CoV-2, RNA, NAAT 09/30/22 05:52 WBC RBC Hgb Hct MCV MCH MCHC RDW Std Deviation RDW Coeff of [place] Plt Count MPV Immature Gran % (Auto) Neut % (Auto) Lymph % (Auto) [place] % (Auto) Eos % (Auto) Baso % (Auto) Neut # (Auto) Lymph # (Auto) [place] # (Auto) Eos # (Auto) Baso # (Auto) Immature Gran # (Auto) PT INR APTT PTT Ratio Sodium 142 Potassium 4.1 D Chloride 107 Carbon Dioxide 28 Anion Gap 7 BUN 15 Creatinine 0.86 Est Cr Clr Drug Dosing 63.5 Est GFR ( Amer) 76.6 Est GFR (Non-Af Amer) 66.1 BUN/Creatinine Ratio 17.4 Glucose 107 H POC Glucose Calcium 8.7 Magnesium 2.3 Total Bilirubin AST ALT Alkaline Phosphatase Troponin I High Sens Total Protein Albumin Globulin Albumin/Globulin Ratio TSH SARS-CoV-2, RNA, NAAT Diagnostic Findings Chest CTA was performed at the time admission. This not reveal any evidence of pulmonary emboli or other notable abnormality. PG Care Time/CCT Total # of Minutes Spent Total Time Spent with Patient: Total time spent is greater than 50% in coordination of care (as documented) at patient's floor/unit and/or counseling patient: Coding Level of Care Code 41666 INT INP/OBS CARE 3/75MIN Diagnoses Paroxysmal atrial fibrillation I48.0
--- NOTE | 2022-09-30 11:18 | Discharge Summary ---
Date of Service September 30, 2022 Admission HPI Per Admitting Provider 76-year-old female with PMH hyperlipidemia, paroxysmal atrial fibrillation on Eliquis, history of atrial tachycardia s/p ablation, HTN, GERD, pemphigus vulgaris of gingival mucosa, cicatricial pemphigoid, and other problems listed below who presents to the ED for evaluation of palpitations. History obtained from the patient and review of outpatient PCP and cardiology records. Patient reports she exercised this morning per her usual routine and then swept out her garage. She reports that she started making breakfast and developed feelings of anxiety and palpitations. She reports associated shortness of breath and lightheadedness. Denies chest pain. Patient states that her fitness watch said that her heart rate was in the 150s. She then presented to the ED for further evaluation. Patient reports she otherwise been feeling well recently. Denies any other recent illnesses, fevers, chills. No missed doses of medications. Denies abdominal pain, nausea, vomiting, diarrhea. No urinary symptoms. In the ED, patient was found to be in A-fib with RVR with rates in the 140s. She received metoprolol 5 mg IV x 3 with minimal improvement in heart rate. Patient then received diltiazem 10 mg IV and heart rates have been in the 100s-110s. She reports ongoing mild palpitations. Labs show K+ 3.3 and she received potassium replacement. Admission Exam Per Admitting Provider General: Well hydrated, No acute distress Eyes: PERRL, conjunctivae normal, not pale, anicteric sclerae, EOM intact bilaterally ENMT: External ear and nose normal, oropharynx normal Respiratory: Normal respiratory effort, no respiratory distress, lungs clear to auscultation, no crackles and no wheezes Cardiovascular: Irregularly irregular, tachycardic Gastrointestinal (Abdomen): Abdomen is not distended, soft, non-tender to palpation, no guarding, no palpable hepatosplenomegaly, normal bowel sounds Musculoskeletal: No pedal edema Neurologic: Alert and oriented x 3, No focal weakness, sensation grossly intact Psychiatric: Euthymic affect Principal Diagnosis Paroxysmal A fib with RVR Discharge Exam General: Lying comfortably in bed, not in distress, on room air HEENT: EOMI, ISAAC, MMM Chest: Clear breath sounds bilaterally, no wheezes or crackles CVS: Regular rate and rhythm, normal heart sounds, no murmur Abdomen: Soft, non tender, not distended, normal bowel sounds Neuro: Awake, alert, oriented, conversing well, non focal Extremities: No cyanosis, clubbing or edema Psych: Calm, cooperative, euthymic Discharge Data Allergies Allergy/AdvReac Type Severity Reaction Status Date / Time IgA less than or equal to 50 Allergy Rash, Verified 09/11/22 08:42 mcg/mL headache, [From Privigen] itching immune globulin,gamma (IgG) Allergy Rash, Verified 09/11/22 08:42 human headache, [From Privigen] itching proline [From Privigen] Allergy Rash, Verified 09/11/22 08:42 headache, itching chlorhexidine AdvReac Intermediate Unknown Verified 09/29/22 14:58 aspirin AdvReac Mild upset Verified 09/11/22 08:42 stomach Consultations 09/29/22 17:27 ED Decision to Admit Stat 09/29/22 20:30 Consult Cardiology Routine Laboratory Results WBC 6.28 K/ul (4.8-10.8) 09/30/22 05:52 RBC 4.91 M/uL (4.20-5.40) 09/30/22 05:52 Hgb 14.2 g/dl (12.0-16.0) 09/30/22 05:52 Hct 43.2 % (37.0-47.0) 09/30/22 05:52 MCV 88.0 fL (80.0-100.0) 09/30/22 05:52 MCH 28.9 pg (25.0-34.0) 09/30/22 05:52 MCHC 32.9 g/dL (32.0-36.0) 09/30/22 05:52 RDW Std Deviation 45.8 fL (36.4-46.3) 09/30/22 05:52 RDW Coeff of Trent 14.4 % (11.5-14.5) 09/30/22 05:52 Plt Count 276 K/uL (130-400) 09/30/22 05:52 MPV 9.7 fL (9.4-12.4) 09/30/22 05:52 Immature Gran % (Auto) 0.2 % 09/29/22 12:05 Neut % (Auto) 54.3 % 09/29/22 12:05 Lymph % (Auto) 34.9 % 09/29/22 12:05 [place] % (Auto) 7.6 % 09/29/22 12:05 Eos % (Auto) 2.2 % 09/29/22 12:05 Baso % (Auto) 0.8 % 09/29/22 12:05 Neut # (Auto) 4.48 K/uL (1.40-6.50) 09/29/22 12:05 Lymph # (Auto) 2.89 K/uL (1.2-3.4) 09/29/22 12:05 [place] # (Auto) 0.63 K/uL (0.11-0.59) H 09/29/22 12:05 Eos # (Auto) 0.18 K/uL (0-0.50) 09/29/22 12:05 Baso # (Auto) 0.07 K/uL (0-0.2) 09/29/22 12:05 Immature Gran # (Auto) 0.02 K/uL (0.01-0.20) 09/29/22 12:05 PT 10.8 Seconds (9.0-12.0) 09/29/22 12:05 INR 1.0 (0.9-1.1) 09/29/22 12:05 APTT 28.9 Seconds (21.0-31.0) 09/29/22 12:05 PTT Ratio 1.0 09/29/22 12:05 Sodium 142 mmol/L (136-145) 09/30/22 05:52 Potassium 4.1 mmol/L (3.5-5.1) D 09/30/22 05:52 Chloride 107 mmol/L (98-107) 09/30/22 05:52 Carbon Dioxide 28 mmol/L (21-32) 09/30/22 05:52 Anion Gap 7 (3-11) 09/30/22 05:52 BUN 15 mg/dl (6-23) 09/30/22 05:52 Creatinine 0.86 mg/dl (0.6-1.2) 09/30/22 05:52 Est Cr Clr Drug Dosing 63.5 ml/min 09/30/22 05:52 Est GFR ( Amer) 76.6 ml/min 09/30/22 05:52 Est GFR (Non-Af Amer) 66.1 ml/min 09/30/22 05:52 BUN/Creatinine Ratio 17.4 (10-20) 09/30/22 05:52 Glucose 107 mg/dl (70-99(Fasting)) H 09/30/22 05:52 POC Glucose 134 mg/dl (70-99) H 09/29/22 21:41 Calcium 8.7 mg/dl (8.6-10.3) 09/30/22 05:52 Magnesium 2.3 mg/dl (1.7-2.4) 09/30/22 05:52 Total Bilirubin 0.5 mg/dl (0.2-1.0) 09/29/22 12:05 AST 18 U/L (13-39) 09/29/22 12:05 ALT 15 U/L (7-52) 09/29/22 12:05 Alkaline Phosphatase 86 U/L (34-104) 09/29/22 12:05 Troponin I High Sens 8.1 pg/ml (0-14) 09/30/22 00:28 Total Protein 7.0 gm/dl (6.0-8.3) 09/29/22 12:05 Albumin 4.2 gm/dl (3.4-5.0) 09/29/22 12:05 Globulin 2.8 gm/dl (2.5-4.0) 09/29/22 12:05 Albumin/Globulin Ratio 1.5 (0.9-2) 09/29/22 12:05 TSH 1.007 uIu/ml (0.300-4.500) 09/29/22 12:05 SARS-CoV-2, RNA, NAAT NEGATIVE (NEGATIVE) 09/29/22 17:46 Impressions Chest X-Ray 09/29/22 11:56 XR chest 1V portable CLINICAL HISTORY: Dysrhythmia. COMPARISON STUDY: Chest radiograph March 10, 2021. FINDINGS: Lung volumes are normal. There is possible right infrahilar opacity. There is no pneumothorax or pleural effusion. Cardiomegaly is unchanged. Mediastinal contours are normal. There is no evidence for pulmonary edema. IMPRESSION: 1. Possible right infrahilar opacity. This may be artifactual however a focus of pneumonia could appear similar. Radiographic follow-up is recommended to ensure resolution. Alternatively, a chest CT could be obtained. 2. Cardiomegaly without evidence for pulmonary edema. ACT 112: Negative or not required by law. Electronically signed by: Az Ballesteros M.D. 09/29/2022 12:56 PM Chest CTA 09/29/22 15:37 CT angio chest PE protocol CT DOSE: 832.25 mGy.cm HISTORY: 76 years-old Female with PE. Acute shortness of breath TECHNIQUE: Multiple CTA images of the chest were obtained after the intravenous administration of 110 ml Optiray. Coronal and sagittal MIPS were obtained from the axial data set and were submitted for review. All measurements were obtained according to NASCET criteria. A dose lowering technique was utilized adhering to the principles of ALARA. COMPARISON: Chest radiograph of same day FINDINGS: CTA: [id number] cardiomegaly. No pericardial effusion. Unremarkable thoracic aorta. No pulmonary emboli identified. CT CHEST: Heterogeneity of the thyroid. No lymphadenopathy identified. No pneumothorax, pleural effusion, airspace consolidation or overt pulmonary edema. Bilateral ground glass densities suggest atelectasis. There are no suspicious pulmonary nodule or mass is identified. No right infrahilar opacity identified to correlate with the radiographic finding. There are a few cysts noted within the liver measuring up to 4.2 cm. Hyperdense material is noted within the esophagus. Unremarkable soft tissues. No acute fracture. IMPRESSION: 1. Cardiomegaly without pulmonary emboli identified. 2. No pleural effusion or lymphadenopathy 3. Bilateral groundglass opacities suggestive of atelectasis. ACT 112: Negative or not required by law. The above report was generated using voice recognition software. It may contain grammatical, syntax or spelling errors. Electronically signed by: Negrito Barber M.D. 09/29/2022 4:17 PM Ordered Studies 09/29/22 15:37 CT angio chest PE protocol Stat Hospital Course (1) Atrial fibrillation with RVR: Patient presened from home for evaluation of palpitations and elevated HR. History of paroxysmal atrial fibrillation anticoagulant on Eliquis and rate typically controlled with metoprolol succinate 25 mg daily. Also remote history of atrial tachycardia s/p ablation. In the ED, found to be in atrial fibrillation with RVR with rates in the 140s. Received metoprolol 5 mg IV x 3 with minimal improvement in heart rate. Patient then received diltiazem 10 mg IV and started on cardizem drip with conversion to NSR around 19:20 and has remained in NSR since. CTA chest with no PE or PNA. No significant dyselectrolytemia. Echo done but report awaited. She was seen by cardiology and cleared for discharge home on her usual home medications and they will follow up as OP for the results as well as possible prn flecainide. Per cardio, more aggressive therapy will be indicated in future if she has more frequent episodes. (2) Hypokalemia: Resolved. Recommend repeat BMP in a week and start potassium supplementation if potassium is still low in repeat lab thom with ongoing HCTZ use. Follow up with PCP (3) Hypertension: continue home meds (4) Hyperglycemia: Hgb A1c 6.5 08/2022. Follows up with PCP- currently on trial of diet and exercise. (5) Hyperlipidemia: Continue statin (6) GERD (gastroesophageal reflux disease): Continue PPI (7) Cicatricial pemphigoid: (8) Pemphigus vulgaris of gingival mucosa: Stable, managed with tacrolimus oral rinses and niacin. Has received rituximab infusions in the past. Follows with dermatology at [facility] Total Time Total Time Spent Total Time Spent (In Minutes): 35 Discharge Plan Discharge Items Patient Disposition: Home - Self-Care Reason For Visit: AFIB RVR Discharge Diagnosis: Paroxysmal A fib with RVR Activity: Resume your previous activity Non-emergency contact: Primary Care Provider and Entertainment Director Call non-emergency contact if: you have any medication questions and your symptoms worsen Follow-up/Referrals: Everton Sanchez DO [Primary Care Provider] - (Date & Time 10/15/2022 10:40 AM Provider Everton Sanchez DO Department Family [facility] [address], [place] * Dr Sanchez's office is working to get you a closer appointment, they will call you. Please call the office if you have any questions.*) Diet: Heart Healthy Addtl Attending Provider Instructions: We have not changed any of your meds You are on hydrochlorthiazide and your potassium was low on admission. Recommend repeat blood work (BMP) in a week and follow up with family doctor to see if you need potassium supplementation while you are on hydrochlorthiazide. Follow up with cardiology for results of your echo as well as possibly starting on as needed flecainide if echo looks good Follow up with your family doctor Pending Studies at Discharge: No Stand-Alone Forms: My [facility], Smoking Cessation Medications and DC Order Prescriptions: Continued Rituxan 10 mg/mL concentrate 0 mg IV DIRECTED Rx Instructions: Auto immune flare up (DME) 3-in-1 Commode Misc See Rx Instructions .MEDSUPPLY Qty: 1 0RF Rx Instructions: As directed (DME) 3-in-1 Commode Misc See Rx Instructions .MEDSUPPLY Qty: 1 0RF Rx Instructions: As directed Eliquis 5 mg tablet 5 mg PO BID Qty: 180 3RF hydrochlorothiazide 25 mg tablet 25 mg PO QAM Qty: 90 3RF metoprolol succinate 25 mg tablet extended release 24 hr 25 mg PO DAILY Qty: 90 3RF diclofenac sodium [Voltaren] 1 % gel 4 g topical QID PRN (Reason: Pain) Rx Instructions: apply to single knee, ankle, foot; for foot includes sole/toes/top of foot Probiotic 3 billion cell Capsule 1 cap PO QAM omeprazole 40 mg capsule,delayed release(DR/EC) 40 mg PO QAM pravastatin 40 mg Tablet 40 mg PO HS cetirizine 10 mg tablet 10 mg PO HS Rx Instructions: 10 mg PO 1 TABLET AT BEDTIME; tacrolimus 1 mg capsule 0 mg PO DIRECTED Rx Instructions: mix with saline, swish and spit 10ml BID biotin 10 mg Tablet 10 mg PO DAILY calcium carbonate-vitamin D3 [Calcium + D] 600 mg-5 mcg (200 unit) Tablet 1 tab PO DAILY niacin 500 mg Tablet 1,000 mg PO DAILY magnesium oxide 500 mg Tablet 500 mg PO DAILY duloxetine [Cymbalta] 30 mg capsule,delayed release(DR/EC) 30 mg PO HS Discharge Orders: Discharge Order (Routine); Ordered 09/30/22 Ordered By: Zechariah Miller Admission Data Admit Date/Time: 09/29/22 17:56 Attending Provider: Zechariah Miller Admit Provider: Alicia Payton I. Primary Care Provider: Everton Sanchez Other Providers: Alicia Payton I. ; Jalen Christensen
--- NOTE | 2022-09-30 17:32 | XCELERA ---
[id number]
--- NOTE | 2022-10-01 18:51 | Electrocardiogram Report ---
Test Reason : Blood Pressure : / mmHG Vent. Rate : 067 BPM Atrial Rate : 067 BPM P-R Int : 148 ms QRS Dur : 098 ms QT Int : 410 ms P-R-T Axes : 020 005 056 degrees QTc Int : 433 ms Normal sinus rhythm Nonspecific ST and T wave abnormality Abnormal ECG When compared with ECG of 29-SEP-2022 17:25, (unconfirmed) Sinus rhythm has replaced Atrial flutter Confirmed by Jalen Christensen ([id number]) on 10/01/2022 6:51:25 PM Referred By: REFERRED SELF Confirmed By:Daniel Christensen
== END 2022-09-30 15:57 | disposition home or self-care (01) ==
LOC: 2E 11:48 → ED 11:48 → SUATTDRO 17:56 → 2E 19:00